=== PATIENT | female | born 1975 | race Caucasian/White ===

== ENCOUNTER 2017-01-07 22:46 | Inpatient (IN) | payer OTHER ==
[~2017-01-07] VITALS: Ht 175.3 cm; Wt 75.0 kg
--- OUTSIDE RECORDS SUMMARY | 2017-01-07 22:51 | XMS REPORT ---
Author Mira Sierra Organization [employer] Address Unknown Phone Unavailable Care Team Providers Care Communications Director Name Role Phone Mira Martin CP Unavailable Allergies, Adverse Reactions, Alerts Substance Reaction Event Type iodine cant breath Non Drug Allergy Problems Problem Type Condition ICD-9 Code Onset Dates Condition Status Problem Migraine, unspecified, with intractable migraine, with status migrainosus 346.93 Active Problem Contraception maintenance V25.40 Active Problem Anxiety disorder NOS 300.00 Active Assessment Pain, knee 719.46 Active Medications No Known Medications Procedures Procedure Coding System Code Date Office/Outpatient Visit-Est CPT-4 45656 Aug 03, 2013 Vital Signs Date/Time: Aug 03, 2013 Temperature 98.0 F Blood Pressure Diastolic 60 mm Hg Blood Pressure Systolic 110 mm Hg Height 68 inches Weight 146.0 lbs Results No Known Results Summary Purpose [employer] Submission
--- OUTSIDE RECORDS SUMMARY | 2017-01-07 22:51 | XMS REPORT ---
Author Mira Sierra Organization [employer] Address Unknown Phone Unavailable Care Team Providers Care Maintenance Trainer Name Role Phone Mira Martin CP Unavailable Allergies, Adverse Reactions, Alerts Substance Reaction Event Type iodine cant breath Drug Allergy Problems Problem Type Condition ICD-9 Code Onset Dates Condition Status Problem Contraception maintenance V25.40 Active Problem Anxiety disorder NOS 300.00 Active Problem Migraine, unspecified, with intractable migraine, with status migrainosus 346.93 Active Assessment Right shoulder pain 719.41 Active Medications Medication Code System Code Instructions Start Date End Date Status Dosage Acetaminophen-Oxycodone Hydrochloride NDC 689 325 mg-5 mg orally every 6 hours prn pain Oct 25, 2014 Active 1 tab(s) Procedures Procedure Coding System Code Date Slings CPT-4 A4565 Oct 25, 2014 Office/Outpatient Visit-Est CPT-4 94477 Oct 25, 2014 X-Ray Exam of Shoulder CPT-4 58076 Oct 25, 2014 Vital Signs Date/Time: Oct 25, 2014 Temperature 98.0 F Blood Pressure Diastolic 86 mm Hg Blood Pressure Systolic 120 mm Hg BMI 21.68 Index Height 68 in Weight 142.6 lbs Results No Known Results Summary Purpose [employer] Submission
--- OUTSIDE RECORDS SUMMARY | 2017-01-07 22:51 | XMS REPORT | Referral Summary ---
Author Organization Unknown Address Unknown Phone Unavailable Care Team Providers Care Commercial Insurance Underwriter Name Role Phone Alex Martin Primary Care Physician [phone] Encounter [facility] [id number] Date(s): 11/10/14 - 11/10/[address] [address] Discharge Disposition: Home or Self Care Attending Physician: Miguelina Lucio MD Vital Signs No data available for this section Problem List No Known Problems Allergies, Adverse Reactions, Alerts Substance Reaction Severity Status iodine Pharyngeal edema Severe Active Medications naproxen 375 mg oral tablet 1 tabs, Oral, BID, # 60 tabs, 0 Refill(s), Pharmacy: [facility] [id number] , 1 tabs Oral BID Start Date: 11/02/14 Status: Ordered Results No data available for this section Immunizations No data available for this section Procedures Procedure Date Related Diagnosis Body Site Left knee Left shoulder [place] tooth Social History Social History Type Response Smoking Status Former smoker; Type: Cigarettes Assessment and Plan No data available for this section
--- OUTSIDE RECORDS SUMMARY | 2017-01-07 22:51 | XMS REPORT | Referral Summary ---
Author Author [facility] Organization [facility] Address Unknown Phone Unavailable Care Team Providers Care Manager Public Name Role Phone Alex Martin Primary Care Physician [phone] Encounter Date(s): 07/10/16 - 07/10/16 [facility] [address] [place] [address] [facility] Discharge Diagnosis: Vomiting Discharge Diagnosis: Gastroenteritis Discharge Diagnosis: Left bundle branch block Discharge Diagnosis: Chest pain Discharge Disposition: 01-Home or Self Care Attending Physician: Provider, Immediate Care Attending Physician: Vish Nur PA-C Admitting Physician: Provider, Immediate Care Vital Signs Most recent to 1 oldest [Reference Range]: Temperature Oral 36.6 degC [35.8-37.3 degC] (07/10/16 1:57 PM) Peripheral Pulse 110 bpm Rate [60-100 bpm] *HI* (07/10/16 1:57 PM) Blood Pressure 107/82 mmHg [90-140/60-90 mmHg] (07/10/16 1:57 PM) SpO2 99 % (07/10/16 1:57 PM) Problem List Condition Effective Dates Status Health Status Informant Acute Active pain(Confirmed) At risk for Active infection(Confirmed) 1 At risk of pressure Active sore(Confirmed) Beta-hemolytic Active Streptococcus, group A(Confirmed)2 1Problem added automatically by system based on initiation of At Risk for Infection in Nutrition Plan of Care 2Strep Grp A in Throat from NOT FOUND collected 10/12/15 12:11:00 [employer] Allergies, Adverse Reactions, Alerts Substance Reaction Severity Status iodine Pharyngeal edema Severe Active Medications Excedrin Migraine tabs, Oral, q6hr, 0 Refill(s) Start Date: 04/22/16 Status: Ordered Levsin SL 0.125 mg sublingual tablet 0.125 mg 1 tabs, SubLingual, q4hr, # 15 tabs, 0 Refill(s), Pharmacy: [id number], 1 tabs SubLingual q4hr Start Date: 07/10/16 Status: Ordered ProAir HFA 90 mcg/inh inhalation aerosol 2 puffs, Inhalation, QID, as needed for wheezing, # 8.5 g, 0 Refill(s), Pharmacy : [facility] [id number] Start Date: 04/22/16 Status: Ordered Zofran ODT 4 mg oral tablet, disintegrating 4 mg 1 tabs, Oral, q4hr, as needed for nausea/vomiting, # 10 tabs, 0 Refill(s), Pharmacy: [facility] [id number], 1 tabs Oral q4hr,PRN:as needed for nausea/ vomiting Start Date: 07/10/16 Stop Date: 07/14/16 Status: Ordered Results Hematology Most recent to 1 oldest [Reference Range]: WBC [5.0-10.0 4.7 10*3/uL 10*3/uL] *LOW* (07/10/16 3:26 PM) RBC [3.70-5.20] 5.30 *HI* (07/10/16 3:26 PM) Hgb [12.0-16.0 15.2 gm/dL gm/dL] (07/10/16 3:26 PM) Hct [37.0-47.0 %] 45.8 % (07/10/16 3:26 PM) MCV [80.0-96.0 fL] 86.4 fL (07/10/16 3:26 PM) MCH [26.0-34.0 pg] 28.7 pg (07/10/16 3:26 PM) MCHC [32.0-36.0 33.2 gm/dL gm/dL] (07/10/16 3:26 PM) RDW [0.0-14.5 %] 14.4 % (07/10/16 3:26 PM) Platelet [150-400 211 10*3/uL 10*3/uL] (07/10/16 3:26 PM) MPV [8.8-14.8 fL] 10.7 fL (07/10/16 3:26 PM) Neutrophils [50-70 60 % %] (07/10/16 3:26 PM) Lymphocytes [20-40 30 % %] (07/10/16 3:26 PM) Monocytes [4-8 %] 9 % *HI* (07/10/16 3:26 PM) Eosinophils [0-6 %] 0 % (07/10/16 3:26 PM) Basophils [0-2 %] 1 % (07/10/16 3:26 PM) Neutro Absolute 2.81 10*3 [2.50-7.00 10*3] (07/10/16 3:26 PM) Lymph Absolute 1.39 10*3 [1.00-4.00 10*3] (07/10/16 3:26 PM) [place] Absolute 0.41 10*3 [0.20-0.80 10*3] (07/10/16 3:26 PM) Eos Absolute 0.02 10*3 [0.00-0.60 10*3] (07/10/16 3:26 PM) Baso Absolute 0.04 [0.00-0.30] (07/10/16 3:26 PM) Chemistry Most recent to 1 oldest [Reference Range]: Albumin Lvl [3.5-5.0 4.9 gm/dL gm/dL] (07/10/16 3:26 PM) Total Protein 7.7 gm/dL [6.1-7.7 gm/dL] (07/10/16 3:26 PM) ALT [0-55 U/L] 14 U/L (07/10/16 3:26 PM) AST [5-34 U/L] 16 U/L (07/10/16 3:26 PM) Alk Phos [40-150 80 U/L U/L] (07/10/16 3:26 PM) Bili Total [0.2-1.2 0.7 mg/dL mg/dL] (07/10/16 3:26 PM) Bili Direct [0.0-0.5 0.2 mg/dL mg/dL] (07/10/16 3:26 PM) Bili Indirect 0.5 mg/dL [0.0-1.0 mg/dL] (07/10/16 3:26 PM) Troponin [0.00-0.01 0.01 ng/mL ng/mL] (07/10/16 3:26 PM) Lipase Lvl [8-78 10 U/L U/L] (07/10/16 3:26 PM) Sodium Venous 140 mmol/L [136-145 mmol/L] (07/10/16 3:26 PM) Potassium Venous 3.5 mmol/L 1 [3.5-5.1 mmol/L] (07/10/16 3:26 PM) Calcium Ionized 1.12 mmol/L Venous [1.10-1.30 (07/10/16 3:26 PM) mmol/L] Total CO2 Venous 27 mmol/L [24-29 mmol/L] (07/10/16 3:26 PM) Glucose Venous 101 mg/dL [70-100 mg/dL] *HI* (07/10/16 3:26 PM) BUN Venous [8-26] 21 (07/10/16 3:26 PM) Creatinine Venous 1.1 mg/dL [0.6-1.2 mg/dL] (07/10/16 3:26 PM) Venous CL [98-109 100 mmol/L mmol/L] (07/10/16 3:26 PM) 1Result Comment: This test was performed on a whole blood specimen. The presence or absence of hemolysis cannot be assessed. Hemolysis can falsely elevate potassium levels. Normals are for venous specimens only. Immunizations No data available for this section Procedures Procedure Date Related Diagnosis Body Site Collection of venous blood by venipuncture 07/10/16 Left knee Left shoulder Tonsillectomy [place] tooth Social History Social History Type Response Smoking Status Former smoker; Type: Cigarettes Assessment and Plan Extracted from: Title: Work Note Author: Luz Molina RN Date: 07/10/16 To Whom It May Concern: This patient was seen and treated in Immediate Care on 07/10/16. Please excuse from work 07/09 and 07/10. May return to work on 07/11 if no vomiting x24 hours. Thanks Extracted from: Title: Office Visit Note Author: Vish Nur PA-C Date: 07/10/16 Assessment/Plan Chest pain I reviewed my findings and impressions with the patient at length. See above for the multiple discussions with the patient. She is given very strict return precautions verbally and if she develops any symptoms of a chest discomfort she is instructed to go to the ER immediately. She is given the instructions for her cardiology appointment on the sixth. Prescriptions for Zofran and Levsin are sent to her pharmacy. Patient is in improved condition. Gastroenteritis Ordered: hyoscyamine, 0.125 mg 1 tabs, SubLingual, q4hr, # 15 tabs, 0 Refill(s), Pharmacy: [facility] [id number], 1 tabs SubLingual q4hr ondansetron, 4 mg 1 tabs, Oral, q4hr, as needed for nausea/vomiting, # 10 tabs , 0 Refill(s), Pharmacy: [facility] [id number], 1 tabs Oral q4hr,PRN:as needed for nausea/vomiting Office Visit Level 4 Est 06066 Left bundle branch block Ordered: Office Visit Level 4 Est 25688 Vomiting Ordered: hyoscyamine, 0.125 mg 1 tabs, SubLingual, q4hr, # 15 tabs, 0 Refill(s), Pharmacy: [facility] [address], 1 tabs SubLingual q4hr ondansetron, 4 mg 1 tabs, Oral, q4hr, as needed for nausea/vomiting, # 10 tabs , 0 Refill(s), Pharmacy: [facility] [id number], 1 tabs Oral q4hr,PRN:as needed for nausea/vomiting Hydrate Iv Infusion Add-On 62204 Hydration Iv Infusion Init 18650 Office Visit Level 4 Est 72613
--- OUTSIDE RECORDS SUMMARY | 2017-01-07 22:51 | XMS REPORT ---
Author Mira Sierra Organization [employer] Address Unknown Phone Unavailable Care Team Providers Care Housing Court Judge Name Role Phone Mira Martin CP Unavailable Allergies No Known Allergies Problems Problem Type Condition ICD-9 Code Onset Dates Condition Status Problem Contraception maintenance V25.40 Active Problem Anxiety disorder NOS 300.00 Active Problem Migraine, unspecified, with intractable migraine, with status migrainosus 346.93 Active Medications No Known Medications Results No Known Results Summary Purpose [employer]ClinicalWorks Submission
--- OUTSIDE RECORDS SUMMARY | 2017-01-07 22:52 | XMS REPORT ---
Author Mira Sierra Organization [employer] Address Unknown Phone Unavailable Care Team Providers Care Leak Gang Supervisor Name Role Phone Mira Martin CP Unavailable Allergies, Adverse Reactions, Alerts Substance Reaction Event Type iodine cant breath Drug Allergy Problems Problem Type Condition ICD-9 Code Onset Dates Condition Status Problem Contraception maintenance V25.40 Active Problem Anxiety disorder NOS 300.00 Active Problem Migraine, unspecified, with intractable migraine, with status migrainosus 346.93 Active Assessment ROUTINE MEDICAL EXAM V70.0 Active Assessment Right shoulder pain 719.41 Active Medications Medication Code System Code Instructions Start Date End Date Status Dosage Acetaminophen-Oxycodone Hydrochloride NDC 689 325 mg-5 mg orally every 6 hours prn pain Oct 25, 2014 1 tab(s) Acetaminophen-Oxycodone Hydrochloride NDC 689 325 mg-5 mg orally every 6 hours prn pain 1 tab(s) Procedures Procedure Coding System Code Date Lipid Panel CPT-4 43967 Nov 02, 2014 Comprehensive Metabolic Panel CPT-4 63639 Nov 02, 2014 Urinalysis, Auto, w/o Scope CPT-4 24041 Nov 02, 2014 Prev Visit, Est - Age 40-64 CPT-4 40148 Nov 02, 2014 Automated Hemogram-CBC w/Diff CPT-4 51368 Nov 02, 2014 Vital Signs Date/Time: Nov 02, 2014 Temperature 97.8 F Blood Pressure Diastolic 80 mm Hg Blood Pressure Systolic 110 mm Hg BMI 21.59 Index Height 68 in Weight 142 lbs Results No Known Results Summary Purpose eClinicalWorks Submission
--- OUTSIDE RECORDS SUMMARY | 2017-01-07 22:52 | XMS REPORT ---
Author Mira Sierra Organization [employer] Address Unknown Phone Unavailable Care Team Providers Care Sales Architect Name Role Phone Mira Martin CP Unavailable [...] Coding System Code Date Office/Outpatient Visit-Est CPT-4 76077 Jul 16, 2013 GARMENT BELT SLEEVE OTH ELASTIC EA CPT-4 A4466 Jul 16, 2013 X-Ray Exam of Knee, 3 CPT-4 91604 Jul 16, 2013 Vital Signs Date/Time: Jul 16, 2013 Temperature 97.8 F Blood Pressure Diastolic 80 mm Hg Blood Pressure Systolic 120 mm Hg Height 68 inches Weight 143.9 lbs Results No Known Results Summary Purpose eClinicalWorks Submission
--- OUTSIDE RECORDS SUMMARY | 2017-01-07 22:52 | XMS REPORT | Referral Summary ---
Author Author [facility] Organization [facility] Address Unknown Phone Unavailable Care Team Providers Care Health Policy Manager Name Role Phone Alex Martin Primary Care Physician [phone] Encounter [facility] Date(s): 03/07/16 - 03/07/16 [facility] [address] [place] [address] [facility] Discharge Disposition: 01-Home or Self Care Attending Physician: Shahnaz Little Attending Physician: Provider, Immediate Care Attending Physician: Rebekah Davila MD Admitting Physician: Provider, Immediate Care Vital Signs Most recent to 1 oldest [Reference Range]: Temperature Oral 36.8 degC [35.8-37.3 degC] (03/07/16 5:27 PM) Peripheral Pulse 89 bpm Rate [60-100 bpm] (03/07/16 5:27 PM) Blood Pressure 136/89 mmHg [90-140/60-90 mmHg] (03/07/16 5:27 PM) SpO2 98 % (03/07/16 5:27 PM) Problem List Condition Effective Dates Status Health Status Informant Acute Active pain(Confirmed) At risk for Active infection(Confirmed) 1 At risk of pressure Active sore(Confirmed) Beta-hemolytic Active Streptococcus, group A(Confirmed)2 1Problem added automatically by system based on initiation of At Risk for Infection in Nutrition Plan of Care 2Strep Grp A in Throat from NOT FOUND collected 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 Allergies, Adverse Reactions, Alerts Substance Reaction Severity Status iodine Pharyngeal edema Severe Active Medications acetaminophen 650 mg, Oral, q6hr, as needed for fever, 0 Refill(s) Start Date: 08/18/15 Status: Ordered ibuprofen 600 mg, Oral, q8hr, as needed for fever, 0 Refill(s) Start Date: 08/18/15 Status: Ordered predniSONE 20 mg oral tablet See Instructions, 2 tabs Oral daily for 3 days then 1 tab daily for 3 days with food, # 9 tabs, 0 Refill(s), Pharmacy: [facility] [id number], 2 tabs Oral daily for 3 days; then 1 tab daily for 3 days; with food Start Date: 03/07/16 Stop Date: 03/13/16 Status: Ordered Results No data available for this section Immunizations No data available for this section Procedures Procedure Date Related Diagnosis Body Site Left knee Left shoulder Tonsillectomy [place] tooth Social History Social History Type Response Smoking Status Former smoker; Type: Cigarettes Assessment and Plan Extracted from: Title: Office Visit Note Author: Rebekah Davila MD Date: 03/07/16 Assessment/Plan Acute viral syndrome rx of prednisone for 6 days and recommend to follow up with her PCP in a week if Sx not resolving. Orders: predniSONE, See Instructions, 2 tabs Oral daily for 3 days then 1 tab daily for 3 days with food, # 9 tabs, 0 Refill(s), Pharmacy: [facility] [id number], 2 tabs Oral daily for 3 days; then 1 tab daily for 3 days; with food
--- OUTSIDE RECORDS SUMMARY | 2017-01-07 22:52 | XMS REPORT | Referral Summary ---
Author Author [facility] Organization [facility] Address Unknown Phone Unavailable Care Team Providers Care Chief General [facility] Name Role Phone Alex Martin Primary Care Physician [phone] Encounter [facility] Date(s): 10/12/15 - 10/12/15 [facility] [address] [place], [place] [address] Discharge Diagnosis: Pneumonia Discharge Diagnosis: Strep pharyngitis Discharge Disposition: 01-Home or Self Care Attending Physician: Remington Watt MD Admitting Physician: Remington Watt MD Vital Signs Most recent to 1 oldest [Reference Range]: Temperature Oral 36.0 degC [35.8-37.3 degC] (10/12/15 11:55 AM) Peripheral Pulse 96 bpm Rate [60-100 bpm] (10/12/15 12:59 PM) Respiratory Rate 22 br/min [14-20 br/min] *HI* (10/12/15 12:59 PM) Blood Pressure 120/85 mmHg [90-140/60-90 mmHg] (10/12/15 12:59 PM) SpO2 100 % (10/12/15 12:59 PM) Problem List Condition Effective Dates Status Health Status Informant Acute Active pain(Confirmed) At risk for Active infection(Confirmed) 1 At risk of pressure Active sore(Confirmed) Beta-hemolytic Active Streptococcus, group A(Confirmed)2 1Problem added automatically by system based on initiation of At Risk for Infection in Nutrition Plan of Care 2Strep Grp A in Throat from NOT FOUND collected 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 Allergies, Adverse Reactions, Alerts Substance Reaction Severity Status iodine Pharyngeal edema Severe Active Medications acetaminophen 650 mg, Oral, q6hr, as needed for fever, 0 Refill(s) Start Date: 08/18/15 Status: Ordered albuterol CFC free 90 mcg/inh inhalation aerosol 2 puffs, Inhalation, Once, as needed for wheezing, # 8 g, 0 Refill(s) Start Date: 10/12/15 Status: Ordered amoxicillin 500 mg oral tablet 500 mg 1 tabs, Oral, BID, X 10 days, # 20 tabs, 0 Refill(s) Start Date: 10/12/15 Stop Date: 10/22/15 Status: Ordered Azithromycin 5 Day Dose Pack 250 mg oral tablet 1 packets, Oral, Once, as directed on package labeling, # 6 tabs, 0 Refill(s) Start Date: 10/12/15 Status: Ordered Fioricet oral tablet 2 tabs, Oral, q6hr, Headache, # 28 tabs, 0 Refill(s), Pharmacy: [facility] [id number] Start Date: 08/22/15 Status: Ordered ibuprofen 600 mg, Oral, q8hr, as needed for fever, 0 Refill(s) Start Date: 08/18/15 Status: Ordered Results Microbiology Reports TEST: Rapid Strep Group A STATUS: Auth (Verified) BODY SITE: SOURCE: Throat COLLECTED DATE/TIME: 10/12/15 12:22 PM Rapid Strep Group A Positive Immunizations No data available for this section Procedures Procedure Date Related Diagnosis Body Site Left knee Left shoulder Tonsillectomy [place] tooth Social History Social History Type Response Smoking Status Former smoker; Type: Cigarettes Assessment and Plan No data available for this section
--- OUTSIDE RECORDS SUMMARY | 2017-01-07 22:52 | XMS REPORT | Referral Summary ---
Author Author [facility] Organization [facility] Address Unknown Phone Unavailable Care Team Providers Care Senior Climate Advisor Name Role Phone Alex Martin Primary Care Physician [phone] Encounter Date(s): 03/04/15 - 03/04/15 [facility] [address] [place] [address] [facility] Discharge Disposition: 01-Home or Self Care Attending Physician: Natanael Brown MD Attending Physician: Provider, Immediate Care Admitting Physician: Provider, Immediate Care Vital Signs Most recent to 1 oldest [Reference Range]: Peripheral Pulse 98 bpm Rate [60-100 bpm] (03/04/15 5:56 PM) Respiratory Rate 16 br/min [14-20 br/min] (03/04/15 5:56 PM) Blood Pressure 138/96 mmHg [90-140/60-90 mmHg] (03/04/15 5:56 PM) SpO2 100 % (03/04/15 5:56 PM) Problem List Condition Effective Dates Status Health Status Informant Acute Active pain(Confirmed) At risk for Active infection(Confirmed) 1 At risk of pressure Active sore(Confirmed) No Chronic Problems Active 1Problem added automatically by system based on initiation of At Risk for Infection in Nutrition Plan of Care Allergies, Adverse Reactions, Alerts Substance Reaction Severity Status iodine Pharyngeal edema Severe Active Medications acetaminophen 650 mg, Oral, q6hr, as needed for fever, 0 Refill(s) Start Date: 08/18/15 Status: Ordered Fioricet oral tablet 2 tabs, Oral, q6hr, Headache, # 28 tabs, 0 Refill(s), Pharmacy: [facility] [address] Start Date: 08/22/15 Status: Ordered ibuprofen 600 mg, Oral, q8hr, as needed for fever, 0 Refill(s) Start Date: 08/18/15 Status: Ordered Results No data available for this section Immunizations No data available for this section Procedures Procedure Date Related Diagnosis Body Site Left knee Left shoulder Tonsillectomy [place] tooth Social History Social History Type Response Smoking Status Former smoker; Type: Cigarettes Assessment and Plan Extracted from: Title: [facility] note Author: Natanael Brown MD Date: 03/04/15 Assessment/Plan Injury of knee, left X-ray showed a suprapatellar joint effusion in this is consistent with exam. Her pain was too high today to do a complete and thorough exam of her left knee but based off of her symptoms in the history of her injury she likely warrants an MRI of the left knee joint for evaluation of ligamentous or meniscus injury. She would like to follow up with her orthopedic doctor Dr. Cardenas'arnaldo in his office and we'll try and call them on Saturday to see if they have room for her. In the meantime we will treat symptomatically with Wedron 5/325mg by mouth every 6 hr when necessary for severe pain number 10. Ordered: Office Visit Level 3 Est 41050 XR Knee Complete Left
--- OUTSIDE RECORDS SUMMARY | 2017-01-07 22:52 | XMS REPORT | Referral Summary ---
Author Author [facility] Organization [facility] Address Unknown Phone Unavailable Care Team Providers Care Plastic Block Boiler Reliner Name Role Phone Alex Martin Primary Care Physician [phone] Encounter [facility] [id number] Date(s): 07/08/15 - 09/03/[address] [facility] [address] [place] [address] LZ Final: Encounter for other orthopedic aftercare Final: Ankylosis, left knee Discharge Disposition: 01-Home or Self Care Attending Physician: Geovani Cardenas MD Vital Signs No data available for this section Problem List Condition Effective Dates Status Health [...] Headache, # 28 tabs, 0 Refill(s), Pharmacy: [email or web address] [id number] Start Date: 08/22/15 Status: Ordered ibuprofen 600 mg, Oral, q8hr, as needed for fever, 0 Refill(s) Start Date: 08/18/15 Status: Ordered Results No data available for this section Immunizations No data available for this section Procedures Procedure Date Related Diagnosis Body Site Left knee Left shoulder Tonsillectomy [place] tooth Social History Social History Type Response Smoking Status Former smoker; Type: Cigarettes Assessment and Plan No data available for this section
--- OUTSIDE RECORDS SUMMARY | 2017-01-07 22:52 | XMS REPORT | Referral Summary ---
Author Author [facility] Organization [facility] Address Unknown Phone Unavailable Care Team Providers Care Hr Representative Name Role Phone Alex Martin Primary Care Physician [phone] Encounter [facility] [id number] Date(s): 02/04/15 - 04/22/15 [facility] [address] [place] [address] Final: CARE INVOLVING OTHER PHYSICAL THERAPY Final: CALCIFYING TENDINITIS OF SHOULDER Discharge Disposition: 01-Home or Self Care Attending Physician: Geovani Cardenas MD Admitting Physician: Geovani Cardenas MD Vital Signs No data available for this section Problem List No Known Problems Allergies, Adverse Reactions, Alerts Substance Reaction Severity Status iodine Pharyngeal edema Severe Active Medications No data available for this section Results No data available for this section Immunizations No data available for this section Procedures Procedure Date Related Diagnosis Body Site Left knee Left shoulder [place] tooth Social History Social History Type Response Smoking Status Former smoker; Type: Cigarettes Assessment and Plan No data available for this section
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
--- OUTSIDE RECORDS SUMMARY | 2017-01-07 22:52 | XMS REPORT | Referral Summary ---
Author Organization Unknown Address Unknown Phone Unavailable Care Team Providers Care Financial Reporting Analyst Name Role Phone Alex Martin Primary Care Physician [phone] Encounter [facility] Date(s): 11/02/14 - 11/02/14 [facility] [address] [place] [address] [facility] Discharge Diagnosis: Knee pain Discharge Disposition: Home or Self Care Attending Physician: Mira Martin MD Admitting Physician: Mira Martin MD Vital Signs Most recent to 1 oldest [Reference Range]: Temperature Oral 37.1 degC [35.8-37.3 degC] (11/02/14 6:58 PM) Peripheral Pulse 94 bpm Rate [60-100 bpm] (11/02/14 6:58 PM) Blood Pressure 139/88 mmHg [90-140/60-90 mmHg] (11/02/14 6:58 PM) Most recent to 1 oldest [Reference Range]: SpO2 97 % (11/02/14 6:58 PM) Problem List No Known Problems Allergies, Adverse Reactions, Alerts Substance Reaction Severity Status iodine Pharyngeal edema Severe Active Medications HYDROcodone-acetaminophen 5 mg-325 mg oral tablet 1 tabs, Oral, q4hr, as needed for pain, X 3 days, # 18 tabs, 0 Refill(s) Start Date: 11/02/14 Stop Date: 11/05/14 Status: Ordered naproxen 375 mg oral tablet 1 tabs, Oral, BID, # 60 tabs, 0 Refill(s), Pharmacy: [facility] [id number] , 1 tabs Oral BID Start Date: 11/02/14 Status: Ordered Results No data available for this section Immunizations No data available for this section Procedures Procedure Date Related Diagnosis Body Site Left knee Left shoulder [place] tooth Social History Social History Type Response Smoking Status Former smoker; Type: Cigarettes Assessment and Plan Extracted from: Title: Office Visit Note Author: Trey Foreman Desmond DO Date: 11/02/14 Assessment/Plan Knee pain I've discussed with the patient that she needs further evaluation to determine why her knee is giving away and why she has pain. She is to contact her primary care physician to schedule further evaluation and possibly MRI. She was placed in a neoprene knee sleeve as a supportive device. She was placed on naproxen 375 mg twice a day for anti-inflammatory. She also was given [place] 5 for pain. The patient is to follow-up with PCP as soon as possible for further treatment and guidance. Ordered: HYDROcodone-acetaminophen, 1 tabs, Oral, q4hr, as needed for pain, X 3 days, # 18 tabs, 0 Refill(s) naproxen, 1 tabs, Oral, BID, # 60 tabs, 0 Refill(s), Pharmacy: [id number], 1 tabs Oral BID Garment, belt, sleeve or other covering, elastic or similar stretchable [id number]
--- OUTSIDE RECORDS SUMMARY | 2017-01-07 22:52 | XMS REPORT ---
Author Augusto Braxton Organization [employer] Address Unknown Phone Unavailable Care Team Providers Care Passenger Train Braker Name Role Phone Augusto Santos CP Unavailable Allergies, Adverse Reactions, Alerts Substance Reaction Event Type iodine cant breath Drug Allergy Problems Problem Type Condition ICD-9 Code Onset Dates Condition Status Problem Contraception maintenance V25.40 Active Problem Anxiety disorder NOS 300.00 Active Problem Migraine, unspecified, with intractable migraine, with status migrainosus 346.93 Active Assessment Lymphadenopathy, cervical 785.6 Active Medications Medication Code System Code Instructions Start Date End Date Status Dosage doxycycline NDC 72772 100 mg orally 2 times a day December 17, 2014 1 cap(s) Acetaminophen-Oxycodone Hydrochloride NDC 689 325 mg-5 mg orally every 6 hours prn pain Oct 25, 2014 1 tab(s) Procedures Procedure Coding System Code Date Office/Outpatient Visit-Est CPT-4 62929 December 17, 2014 Vital Signs Date/Time: December 17, 2014 Temperature 99.3 F Blood Pressure Diastolic 70 mm Hg Blood Pressure Systolic 112 mm Hg BMI 21.30 Index Height 68 in Weight 140.1 lbs Results No Known Results Summary Purpose [employer] Submission
--- OUTSIDE RECORDS SUMMARY | 2017-01-07 22:52 | XMS REPORT | Referral Summary ---
Author Author [facility] Organization [facility] Address Unknown Phone Unavailable Care Team Providers Care Production Department Supervisor Name Role Phone Alex Martin Primary Care Physician [phone] Encounter [facility] [id number] Date(s): 08/16/15 - 08/16/15 [facility] [address] [place] [address] [facility] Discharge Diagnosis: Strep throat Discharge Diagnosis: Sore throat Discharge Disposition: 01-Home or Self Care Attending Physician: Villa Castillo PA-C Attending Physician: Provider, Immediate Care Admitting Physician: Provider, Immediate Care Vital Signs Most recent to 1 oldest [Reference Range]: Temperature Oral 38.9 degC [35.8-37.3 degC] *HI* (08/16/15 7:10 PM) Peripheral Pulse 116 bpm Rate [60-100 bpm] *HI* (08/16/15 7:10 PM) Blood Pressure 140/85 mmHg [90-140/60-90 mmHg] (08/16/15 7:10 PM) SpO2 96 % (08/16/15 7:10 PM) Problem List No Known Problems Allergies, Adverse Reactions, Alerts Substance Reaction Severity Status iodine Pharyngeal edema Severe Active Medications No Known Medications Results No data available for this section Immunizations No data available for this section Procedures Procedure Date Related Diagnosis Body Site Left knee Left shoulder [place] tooth Social History Social History Type Response Smoking Status Former smoker; Type: Cigarettes Assessment and Plan Extracted from: Title: Office Visit Note Author: Villa Castillo PA-C Date: 08/16/15 Assessment/Plan 1.Strep throat Rapid strep positive. Pt given a z-tamy d/t recent diagnosis of mono. Diagnosis and treatment discussed. Patient advised to follow up with PCP in 2-3 days. If symptoms worsen at any time, patient will go to the nearest ER for further evaluation. Patient stable upon discharge, alert and orientated with no apparent distress, and indicated understanding of discharge instructions. Ordered: Office Visit Level 3 Est 70723 Extracted from: Title: Clinical Document Author: Villa Castillo PA-C Date: 08/16/15 To Whom It May Concern: This patient is currently under my medical care and was seen in the office on . May return to work 08/19/15. Limitations/Restrictions none
--- OUTSIDE RECORDS SUMMARY | 2017-01-07 22:52 | XMS REPORT | Referral Summary ---
Author Author [facility] Organization [facility] Address Unknown Phone Unavailable Care Team Providers Care Site Medical Director Name Role Phone Alex Martin Primary Care Physician [phone] Encounter Date(s): 04/22/16 - 04/22/16 [facility] [address] [place] [address] [facility] Discharge Diagnosis: Cough Discharge Diagnosis: Lingular pneumonia Discharge Disposition: 01-Home or Self Care Attending Physician: Kanchan [place] APRN Attending Physician: Villa Castillo PA-C Attending Physician: Provider, Immediate Care Admitting Physician: Provider, Immediate Care Vital Signs Most recent to 1 oldest [Reference Range]: Temperature Oral 36.8 degC [35.8-37.3 degC] (04/22/16 11:47 AM) Peripheral Pulse 96 bpm Rate [60-100 bpm] (04/22/16 11:47 AM) Blood Pressure 135/83 mmHg [90-140/60-90 mmHg] (04/22/16 11:47 AM) SpO2 98 % (04/22/16 11:47 AM) Problem List Condition Effective Dates Status Health Status Informant Acute Active pain(Confirmed) At risk for Active infection(Confirmed) 1 At risk of pressure Active sore(Confirmed) Beta-hemolytic Active Streptococcus, group A(Confirmed)2 1Problem added automatically by system based on initiation of At Risk for Infection in Nutrition Plan of Care 2Strep Grp A in Throat from NOT FOUND collected 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 Allergies, Adverse Reactions, Alerts Substance Reaction Severity Status iodine Pharyngeal edema Severe Active Medications Excedrin Migraine tabs, Oral, q6hr, 0 Refill(s) Start Date: 04/22/16 Status: Ordered Levaquin 750 mg oral tablet 750 mg 1 tabs, Oral, q24hr, X 10 days, # 10 tabs, 0 Refill(s), Pharmacy: [facility] [id number], 1 tabs Oral q24hr,x10 days Start Date: 04/22/16 Stop Date: 05/02/16 Status: Ordered ProAir HFA 90 mcg/inh inhalation aerosol 2 puffs, Inhalation, QID, as needed for wheezing, # 8.5 g, 0 Refill(s), Pharmacy : [facility] [id number] Start Date: 04/22/16 Status: Ordered Results No data available for this section Immunizations No data available for this section Procedures Procedure Date Related Diagnosis Body Site Left knee Left shoulder Tonsillectomy [place] tooth Social History Social History Type Response Smoking Status Former smoker; Type: Cigarettes Assessment and Plan Extracted from: Title: Office Visit Note Author: Villa Castillo PA-C Date: 04/22/16 Assessment/Plan 1.Lingular pneumonia CXR reveals left lingular infiltrate. Pt given Rocephin IM x 1 gram, rx for Levaquin and albuterol HFA. Diagnosis and treatment discussed. Patient advised to follow up with PCP in1-2 days. If symptoms worsen at any time, patient will go to the nearest ER for further evaluation. Patient stable upon discharge, alert and orientated with no apparent distress, and indicated understanding of discharge instructions. Ordered: Office Visit Level 3 Est 28817 Orders: albuterol, 2 puffs, Inhalation, QID, as needed for wheezing, # 8.5 g, 0 Refill(s), Pharmacy: [facility] [id number] levofloxacin, 750 mg 1 tabs, Oral, q24hr, X 10 days, # 10 tabs, 0 Refill(s), Pharmacy: [id number], 1 tabs Oral q24hr,x10 days
--- OUTSIDE RECORDS SUMMARY | 2017-01-07 22:52 | XMS REPORT | Referral Summary ---
Author Author [facility] Organization [facility] Address Unknown Phone Unavailable Care Team Providers Care Environmental Marketing Representative Name Role Phone Alex Martin Primary Care Physician [phone] Encounter [facility] Date(s): 08/18/15 - 08/22/15 [facility] [address] [place], [place] [address] Discharge Disposition: 01-Home or Self Care Attending Physician: Nicola Hussein MD Admitting Physician: Nicola Hussein MD Vital Signs Most recent to 1 oldest [Reference Range]: Temperature Oral 37.0 degC [35.8-37.3 degC] (08/22/15 11:00 AM) Peripheral Pulse 71 bpm Rate [60-100 bpm] (08/22/15 4:21 AM) Heart Rate Monitored 86 bpm [60-100 bpm] (08/22/15 11:21 AM) Respiratory Rate 16 br/min [14-20 br/min] (08/22/15 11:21 AM) Blood Pressure 102/67 mmHg [90-140/60-90 mmHg] (08/22/15 11:00 AM) Pulse Rate [60-100 80 bpm bpm] (08/21/15 10:15 PM) SpO2 95 % (08/22/15 11:21 AM) Problem List Condition Effective Dates Status Health Status Informant Acute Active pain(Confirmed) At risk for Active infection(Confirmed) 1 At risk of pressure Active sore(Confirmed) No Chronic Problems Active 1Problem added automatically by system based on initiation of At Risk for Infection in Nutrition Plan of Care Allergies, Adverse Reactions, Alerts Substance Reaction Severity Status iodine Pharyngeal edema Severe Active Medications Abreva 10% topical cream 1 cathleen, Topical, 5x/Day, X 7 days, # 2 g, 0 Refill(s), Pharmacy: [facility] [id number] Start Date: 08/22/15 Stop Date: 08/29/15 Status: Ordered acetaminophen 650 mg, Oral, q6hr, as needed for fever, 0 Refill(s) Start Date: 08/18/15 Status: Ordered amoxicillin 500 mg oral capsule 500 mg 1 caps, Oral, TID, X 5 days, # 15 caps, 0 Refill(s), Pharmacy: [facility] [id number], 1 caps Oral TID,x5 days Start Date: 08/22/15 Stop Date: 08/27/15 Status: Ordered Fioricet oral tablet 2 tabs, Oral, q6hr, Headache, # 28 tabs, 0 Refill(s), Pharmacy: [facility] [id number] Start Date: 08/22/15 Status: Ordered ibuprofen 600 mg, Oral, q8hr, as needed for fever, 0 Refill(s) Start Date: 08/18/15 Status: Ordered Results Hematology Most recent to 1 oldest [Reference Range]: WBC [4.8-10.8 6.0 10*3/uL 10*3/uL] (08/22/15 5:25 AM) RBC [4.00-5.20] 4.03 (08/22/15 5:25 AM) Hgb [12.0-16.0 10.9 gm/dL gm/dL] *LOW* (08/22/15 5:25 AM) Hct [37.0-47.0 %] 34.2 % *LOW* (08/22/15 5:25 AM) MCV [82.0-99.0 fL] 84.9 fL (08/22/15 5:25 AM) MCH [27.0-32.0 pg] 27.0 pg (08/22/15 5:25 AM) MCHC [32.0-36.0 31.9 gm/dL gm/dL] *LOW* (08/22/15 5:25 AM) RDW [11.5-14.5 %] 15.1 % *HI* (08/22/15 5:25 AM) Platelet [150-400 236 10*3/uL 10*3/uL] (08/22/15 5:25 AM) MPV [9.4-12.4 fL] 10.4 fL (08/22/15 5:25 AM) Immature 0.3 % Granulocytes (08/22/15 5:25 AM) [0.0-1.0 %] Neutrophils [51-75 55 % %] (08/22/15 5:25 AM) Lymphocytes [20-46 32 % %] (08/22/15 5:25 AM) Monocytes [4-11 %] 10 % (08/22/15 5:25 AM) Eosinophils [0-4 %] 3 % (08/22/15 5:25 AM) Basophils [0-2 %] 1 % (08/22/15 5:25 AM) Neutro Absolute 3.30 10*3 [1.90-7.00 10*3] (08/22/15 5:25 AM) Lymph Absolute 1.91 10*3 [0.80-3.30 10*3] (08/22/15 5:25 AM) [place] Absolute 0.59 10*3 [0.30-1.00 10*3] (08/22/15 5:25 AM) Eos Absolute 0.16 10*3 [0.00-0.50 10*3] (08/22/15 5:25 AM) Baso Absolute 0.04 10*3 [0.00-0.20 10*3] (08/22/15 5:25 AM) Nucleated RBC 0.0 /100 WBC Automated [0 /100 (08/19/15 5:22 AM) WBC] Differential Scanned Slide (08/18/15 3:20 PM) Chemistry Most recent to 1 oldest [Reference Range]: Sodium Lvl [136-144 138 mEq/L mEq/L] (08/22/15 5:25 AM) Potassium Lvl 3.8 mEq/L [3.6-5.1 mEq/L] (08/22/15 5:25 AM) Chloride [99-109 101 mEq/L mEq/L] (08/22/15 5:25 AM) CO2 [22-32 mEq/L] 31 mEq/L (08/22/15 5:25 AM) AGAP [3-20] 6 (08/22/15 5:25 AM) BUN [4-20 mg/dL] 6 mg/dL (08/22/15 5:25 AM) Glucose Lvl [70-100 100 mg/dL mg/dL] (08/22/15 5:25 AM) Creatinine Lvl 0.82 mg/dL [0.44-1.03 mg/dL] (08/22/15 5:25 AM) eGFR [>60] >60 1 (08/22/15 5:25 AM) Calcium Lvl 8.7 mg/dL [8.6-10.0 mg/dL] (08/22/15 5:25 AM) Albumin Lvl [3.5-4.8 2.9 gm/dL gm/dL] *LOW* (08/20/15 5:43 AM) Total Protein 5.9 gm/dL [6.1-7.9 gm/dL] *LOW* (08/20/15 5:43 AM) Globulin [1.9-4.3 3.0 gm/dL gm/dL] (08/20/15 5:43 AM) ALT [14-54 U/L] 55 U/L *HI* (08/20/15 5:43 AM) AST [15-41 U/L] 34 U/L (08/20/15 5:43 AM) Alk Phos [26-104 62 U/L U/L] (08/20/15 5:43 AM) Bili Total [0.2-1.2 0.1 mg/dL 2 mg/dL] *LOW* (08/20/15 5:43 AM) Magnesium Lvl 2.0 mg/dL [1.8-2.5 mg/dL] (08/22/15 5:25 AM) IgE (Immunoglobulin 25 Intl Units/mL E) [0-100 Intl (08/19/15 9:23 AM) Units/mL] Lactic Acid Lvl 0.7 mEq/L [0.5-2.2 mEq/L] (08/19/15 5:22 AM) U Beta hCG Ql Negative [Negative] (08/18/15 3:20 PM) 1Result Comment: Multiply eGFR results by 1.21 for race. 2Result Comment: Naproxen, specifically the metabolite O-desmethylnaproxen, may cause spurious elevation in Total Bilirubin levels. Urinalysis Most recent to 1 oldest [Reference Range]: UA Color Dk Yellow (08/18/15 3:20 PM) UA Appear Clear (08/18/15 3:20 PM) UA pH [5.0-8.0] 7.0 (08/18/15 3:20 PM) UA Leuk Est Negative [Negative] (08/18/15 3:20 PM) UA Nitrite Negative [Negative] (08/18/15 3:20 PM) UA Protein Pos 1+ [Negative] *ABN* (08/18/15 3:20 PM) UA Glucose Negative [Negative] (08/18/15 3:20 PM) UA Ketones Pos 3+ [Negative] *ABN* (08/18/15 3:20 PM) UA Urobilinogen Negative [<1.0] (08/18/15 3:20 PM) UA Bili [Negative] Positive *ABN* (08/18/15 3:20 PM) UA Blood [Negative] Pos 3+ *ABN* (08/18/15 3:20 PM) UA Spec Grav 1.023 [1.003-1.030] (08/18/15 3:20 PM) Type Clean Catch (08/18/15 3:20 PM) UA WBC [0-4] 5-10 *ABN* (08/18/15 3:20 PM) UA RBC [0-2] 10-20 *ABN* (08/18/15 3:20 PM) Epithelial Cells 2-5 (08/18/15 3:20 PM) UA Bacteria Moderate *ABN* (08/18/15 3:20 PM) UA Yeast Present *ABN* (08/18/15 3:20 PM) UA Mucous Present (08/18/15 3:20 PM) Microbiology Reports TEST: Stool Culture w/ Campy & Shigatoxin STATUS: Auth (Verified) BODY SITE: SOURCE: Stool COLLECTED DATE/TIME: 08/18/15 7:03 PM Stool Culture No Salmonella, Shigella or Campylobacter isolated Normal maximino is altered No aerobic gram negative bacilli isolated TEST: Fecal Leucocyte Stain STATUS: Auth (Verified) BODY SITE: SOURCE: Stool COLLECTED DATE/TIME: 08/18/15 7:03 PM Fecal Leucocyte Stain No white blood cells observed TEST: Respiratory Virus Panel - PCR STATUS: Auth (Verified) BODY SITE: SOURCE: Nasopharyngeal Swab COLLECTED DATE/TIME: 08/18/15 6:38 PM Respiratory Virus Panel - PCR Parainfluenza 1 Virus Positive by PCR Rhinovirus Positive by PCR . Specimen tested for the following FDA approved viral targets: Influenza A, Influenza A subtype H1, Influenza A subtype H3, Influenza A 2009 H1N1, Influenza B, Respiratory Syncytial Virus subtype A, Respiratory Syncytial Virus subtype B, Adenovirus B/E, Adenovirus C, Rhinovirus, Parainfluenza virus 1, Parainfluenza virus 2, Parainfluenza virus 3, and Human Metapneumovirus. . The following viral targets were also tested. Although not FDA approved, these targets have been validated by our laboratory for clinical diagnosis: Parainfluenza virus 4, Coronavirus 229E, Coronavirus NL63, Coronavirus HKU1, and Coronavirus OC43. ORGANISM:Parainfluenza Virus Type 1 ORGANISM:Rhinovirus TEST: Blood Culture STATUS: Order in Progress BODY SITE: SOURCE: Blood COLLECTED DATE/TIME: 08/18/15 5:11 PM Blood Culture No growth after 12 hours incubation. Nursing unit will be called if growth is detected. - A blood culture drawn through a catheter with a differential time to positivity at least 2 hours sooner than one drawn from a peripheral vein at the same time suggests a catheter-related bloodstream infection. TEST: Blood Culture STATUS: Order in Progress BODY SITE: SOURCE: Blood COLLECTED DATE/TIME: 08/18/15 5:10 PM Blood Culture No growth after 12 hours incubation. Nursing unit will be called if growth is detected. - A blood culture drawn through a catheter with a differential time to positivity at least 2 hours sooner than one drawn from a peripheral vein at the same time suggests a catheter-related bloodstream infection. Immunizations No data available for this section Procedures Procedure Date Related Diagnosis Body Site Left knee Left shoulder Tonsillectomy [place] tooth Social History Social History Type Response Smoking Status Former smoker; Type: Cigarettes Assessment and Plan No data available for this section
--- OUTSIDE RECORDS SUMMARY | 2017-01-07 22:52 | XMS REPORT | Referral Summary ---
Author Author [facility] Organization [facility] Address Unknown Phone Unavailable Care Team Providers Care Global Chief Creative Officer Name Role Phone Alex Martin Primary Care Physician [phone] Encounter Date(s): 02/25/16 - 02/25/16 [facility] [address] [place] [id number] [facility] Discharge Diagnosis: Sore throat Discharge Diagnosis: History of mononucleosis Discharge Diagnosis: Pharyngitis, streptococcal, acute Discharge Disposition: -Home or Self Care Attending Physician: Provider, Immediate Care Admitting Physician: Provider, Immediate Care Vital Signs Most recent to 1 oldest [Reference Range]: Temperature Oral 37.7 degC [35.8-37.3 degC] *HI* (02/25/16 5:18 PM) Peripheral Pulse 102 bpm Rate [60-100 bpm] *HI* (02/25/16 5:18 PM) Blood Pressure 126/77 mmHg [90-140/60-90 mmHg] (02/25/16 5:18 PM) SpO2 98 % (02/25/16 5:18 PM) Problem List Condition Effective Dates Status Health Status Informant Acute Active pain(Confirmed) At risk for Active infection(Confirmed) 1 At risk of pressure Active sore(Confirmed) Beta-hemolytic Active Streptococcus, group A(Confirmed)2 1Problem added automatically by system based on initiation of At Risk for Infection in Nutrition Plan of Care 2Strep Grp A in Throat from NOT FOUND collected 10/12/15 12:11:00 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 Allergies, Adverse Reactions, Alerts Substance Reaction Severity Status iodine Pharyngeal edema Severe Active Medications acetaminophen 650 mg, Oral, q6hr, as needed for fever, 0 Refill(s) Start Date: 08/18/15 Status: Ordered amoxicillin 875 mg oral tablet 875 mg 1 tabs, Oral, BID, X 10 days, # 20 tabs, 0 Refill(s), Pharmacy: [facility] [id number], 1 tabs Oral BID,x10 days Start Date: 02/25/16 Stop Date: 03/06/16 Status: Ordered ibuprofen 600 mg, Oral, q8hr, as needed for fever, 0 Refill(s) Start Date: 08/18/15 Status: Ordered Results Hematology Most recent to 1 oldest [Reference Range]: WBC [4.8-10.8 16.1 10*3/uL 10*3/uL] *HI* (02/25/16 6:08 PM) RBC [4.00-5.20] 4.82 (02/25/16 6:08 PM) Hgb [12.0-16.0 13.3 gm/dL gm/dL] (02/25/16 6:08 PM) Hct [37.0-47.0 %] 40.8 % (02/25/16 6:08 PM) MCV [82.0-99.0 fL] 84.6 fL (02/25/16 6:08 PM) MCH [27.0-32.0 pg] 27.6 pg (02/25/16 6:08 PM) MCHC [32.0-36.0 32.6 gm/dL gm/dL] (02/25/16 6:08 PM) RDW [11.5-14.5 %] 16.1 % *HI* (02/25/16 6:08 PM) Platelet [150-400 247 10*3/uL 10*3/uL] (02/25/16 6:08 PM) MPV [8.8-14.8 fL] 11.0 fL (02/25/16 6:08 PM) Neutrophils [51-75 86 % %] *HI* (02/25/16 6:08 PM) Lymphocytes [20-46 10 % %] *LOW* (02/25/16 6:08 PM) Monocytes [4-11 %] 4 % (02/25/16 6:08 PM) Eosinophils [0-4 %] 0 % (02/25/16 6:08 PM) Basophils [0-2 %] 0 % (02/25/16 6:08 PM) Neutro Absolute 13.85 10*3 [1.90-7.00 10*3] *HI* (02/25/16 6:08 PM) Lymph Absolute 1.61 10*3 [0.80-3.30 10*3] (02/25/16 6:08 PM) [place] Absolute 0.64 10*3 [0.30-1.00 10*3] (02/25/16 6:08 PM) Eos Absolute 0.00 10*3 [0.00-0.50 10*3] (02/25/16 6:08 PM) Baso Absolute 0.00 10*3 [0.00-0.20 10*3] (02/25/16 6:08 PM) Differential Manual *ABN* (02/25/16:08 PM) Chemistry Most recent to 1 oldest [Reference Range]: Sodium Lvl [135-144 141 mEq/L mEq/L] (02/25/16 6:08 PM) Potassium Lvl 4.0 mEq/L [3.5-5.2 mEq/L] (02/25/16 6:08 PM) Chloride [99-111 103 mEq/L mEq/L] (02/25/16 6:08 PM) CO2 [22-31 mEq/L] 28 mEq/L (02/25/16 6:08 PM) AGAP [3-20] 10 (02/25/16 6:08 PM) BUN [7-19 mg/dL] 9 mg/dL (02/25/16 6:08 PM) Glucose Lvl [70-99 105 mg/dL mg/dL] *HI* (02/25/16 6:08 PM) Creatinine Lvl 0.86 mg/dL [0.57-1.11 mg/dL] (02/25/16 6:08 PM) eGFR [>60 mL/min] >60 mL/min 1 (02/25/16 6:08 PM) Calcium Lvl 9.4 mg/dL [8.9-10.5 mg/dL] (02/25/16 6:08 PM) Albumin Lvl [3.5-5.0 4.8 gm/dL gm/dL] (02/25/16 6:08 PM) Total Protein 7.7 gm/dL [6.4-8.3 gm/dL] (02/25/16 6:08 PM) Globulin [1.8-4.0 2.9 gm/dL gm/dL] (02/25/16 6:08 PM) ALT [0-55 U/L] 13 U/L (02/25/16 6:08 PM) AST [5-34 U/L] 13 U/L (02/25/16 6:08 PM) Alk Phos [40-150 72 U/L U/L] (02/25/16 6:08 PM) Bili Total [0.2-1.2 0.6 mg/dL mg/dL] (02/25/16 6:08 PM) 1Result Comment: Multiply eGFR results by 1.21 for race. Immunizations No data available for this section Procedures Procedure Date Related Diagnosis Body Site Left knee Left shoulder Tonsillectomy [place] tooth Social History Social History Type Response Smoking Status Former smoker; Type: Cigarettes Assessment and Plan Extracted from: Title: Ambulatory Patient Education Author: Tammy Marie HRIS COORDINATOR Date: ENT Strep Throat Strep throat is an infection of the throat caused by a bacteria named Streptococcus pyogenes. Your health care provider may call the infection streptococcal "tonsillitis" or "pharyngitis" depending on whether there are signs of inflammation in the tonsils or back of the throat. Strep throat is most common in children aged 515 years during the cold months of the year, but it can occur in people of any age during any season. This infection is spread from person to person (contagious) through coughing, sneezing, or other close contact. SIGNS AND SYMPTOMS Fever or chills. Painful, swollen, red tonsils or throat. Pain or difficulty when swallowing. White or yellow spots on the tonsils or throat. Swollen, tender lymph nodes or "glands" of the neck or under the jaw. Red rash all over the body (rare). DIAGNOSIS Many different infections can cause the same symptoms. A test must be done to confirm the diagnosis so the right treatment can be given. A "rapid strep test" can help your health care provider make the diagnosis in a few minutes. If this test is not available, a light swab of the infected area can be used for a throat culture test. If a throat culture test is done, results are usually available in a day or two. TREATMENT Strep throat is treated with antibiotic medicine. HOME CARE INSTRUCTIONS Gargle with 1 tsp of salt in 1 cup of warm water, 34 times per day or as needed for comfort. Family members who also have a sore throat or fever should be tested for strep throat and treated with antibiotics if they have the strep infection. Make sure everyone in your household washes their hands well. Do not share food, drinking cups, or personal items that could cause the infection to spread to others. You may need to eat a soft food diet until your sore throat gets better. Drink enough water and fluids to keep your urine clear or pale yellow. This will help prevent dehydration. Get plenty of rest. Stay home from school, day care, or work until you have been on antibiotics for 24 hours. Take medicines only as directed by your health care provider. Take your antibiotic medicine as directed by your health care provider. Finish it even if you start to feel better. SEEK MEDICAL CARE IF: The glands in your neck continue to enlarge. You develop a rash, cough, or earache. You cough up green, yellow-brown, or bloody sputum. You have pain or discomfort not controlled by medicines. Your problems seem to be getting worse rather than better. You have a fever. SEEK IMMEDIATE MEDICAL CARE IF: You develop any new symptoms such as vomiting, severe headache, stiff or painful neck, chest pain, shortness of breath, or trouble swallowing. You develop severe throat pain, drooling, or changes in your voice. You develop swelling of the neck, or the skin on the neck becomes red and tender. You develop signs of dehydration, such as fatigue, dry mouth, and decreased urination. You become increasingly sleepy, or you cannot wake up completely. MAKE SURE YOU: Understand these instructions. Will watch your condition. Will get help right away if you are not doing well or get worse. This information is not intended to replace advice given to you by your health care provider. Make sure you discuss any questions you have with your health care provider. Document Released: 09/20/2001 Document Revised: 02/07/2015 Document Reviewed: [facility] Patient Information 2015 [facility]. No follow up information was provided. Extracted from: Title: Sore Throat * Author: Tammy Marie APRN Date: 02/25/16 Impression and Plan Diagnosis Pharyngitis, streptococcal, acute (GFH33-VS J02.0, Discharge, Medical). History of mononucleosis (PBU15-GS Z86.19, Discharge, Medical). Plan: Rapid strep test done in the office today was positive. Results were given to patient. CBC and CMP labs were drawn. Results showed WBCs 16.1 with elevated neutrophils. CMP was normal. Patient was given her results. [place] testing results are pending, and she is to call for her test results next week. Recommended that she rest, increase her fluid intake, and take Tylenol or Motrin PRN for fever or discomfort. Patient is to call her PCP for a follow-up appointment next week. Patient Instructions: Strep Throat. Counseled: Patient, Verbalized understanding.
--- OUTSIDE RECORDS SUMMARY | 2017-01-07 22:52 | XMS REPORT ---
Author Mira Sierra Organization [employer] Address Unknown Phone Unavailable Care Team Providers Care Cloth Finishing Range Operator Name Role Phone Mira Martin CP Unavailable Allergies No Known Allergies Problems Problem Type Condition Code Onset Dates Condition Status Problem Contraception maintenance V25.40 Active Problem Anxiety disorder NOS 300.00 Active Problem Migraine, unspecified, with intractable migraine, with status migrainosus 346.93 Active Medications No Known Medications Results No Known Results Summary Purpose [employer] Submission
--- OUTSIDE RECORDS SUMMARY | 2017-01-07 22:52 | XMS REPORT | Referral Summary ---
Author Author [facility] Organization [facility] Address Unknown Phone Unavailable Care Team Providers Care Kinder Teacher Name Role Phone Alex Martin Primary Care Physician [phone] Encounter VC Date(s): 06/22/15 - 07/06/15 [facility] [address] [place] [address] Final: CARE INVOLVING OTHER PHYSICAL THERAPY Final: ANKYLOSIS OF LOWER LEG JOINT Discharge Disposition: 01-Home or Self Care Attending [...] Throat from NOT FOUND collected 10/12/15 12:11:00 NURSE SITTER Allergies, Adverse Reactions, Alerts Substance Reaction Severity Status iodine Pharyngeal edema Severe Active Medications acetaminophen 650 mg, Oral, q6hr, as needed for fever, 0 Refill(s) Start Date: 08/18/15 Status: Ordered albuterol CFC free 90 mcg/inh inhalation aerosol 2 puffs, Inhalation, Once, as needed for wheezing, # 8 g, 0 Refill(s) Start Date: 10/12/15 Status: Ordered albuterol CFC free 90 mcg/inh inhalation aerosol 2 puffs, Inhalation, q4hr, as needed for wheezing, # 18 g, 0 Refill(s) Start Date: 11/08/15 Status: Ordered Azithromycin 5 Day Dose Pack 250 mg oral tablet 1 packets, Oral, Once, as directed on package labeling, # 6 tabs, 0 Refill(s) Start Date: 10/12/15 Status: Ordered Azithromycin 5 Day Dose Pack 250 mg oral tablet 1 packets, Oral, Once, as directed on package labeling, # 6 tabs, 0 Refill(s) Start Date: 11/08/15 Status: Ordered Fioricet oral tablet 2 tabs, Oral, q6hr, Headache, # 28 tabs, 0 Refill(s), Pharmacy: [facility] Start Date: 08/22/15 Status: Ordered ibuprofen 600 mg, Oral, q8hr, as needed for fever, 0 Refill(s) Start Date: 08/18/15 Status: Ordered Results No data available for this section Immunizations No data available for this section Procedures Procedure Date Related Diagnosis Body Site Left knee Left shoulder Tonsillectomy [place] tooth Social History Social History Type Response Smoking Status Former smoker; Type: Cigarettes Assessment and Plan No data available for this section
--- OUTSIDE RECORDS SUMMARY | 2017-01-07 22:52 | XMS REPORT ---
Author Mira Sierra Organization [employer] Address Unknown Phone Unavailable Care Team Providers Care Nut Feeder Name Role Phone Mira Martin CP Unavailable Allergies No Known Allergies Problems Problem Type Condition ICD-9 Code Onset Dates Condition Status Problem Contraception maintenance V25.40 Active Problem Anxiety disorder NOS 300.00 Active Problem Migraine, unspecified, with intractable migraine, with status migrainosus 346.93 Active Medications No Known Medications Results No Known Results Summary Purpose [employer] Submission
--- NOTE | 2017-01-07 23:09 | ERPDOC ---
Departure Disposition Decision Date: Jan 08, 2017 Disposition Decision Time: 02:26 () Disposition: 02 TO [facility] Impression Impression (LOLA COOK APRN) Impression: Primary Impression: Appendicitis, acute Acute appendicitis type: unspecified acute appendicitis type Qualified Codes : K35.80 - Unspecified acute appendicitis Severity: Moderate () Condition: Improved Seen By: Physician only () Problems/Meds/Labs Reviewed?: Yes Medications reviewed and manag: Yes () Follow up care ordered?: Yes Mental Status: Alert, Oriented () Scripts Polyethylene Glycol 3350 (Miralax) 17 Gm Powd.pack 1 PACKET PO DAILY Y for CONSTIPATION, #30 PACKET 3 Refills Prov: JENNY KELSEY APRN, CWS 01/09/17 Ibuprofen (Ibuprofen) 600 Mg Tablet 600 MG PO Q6H Y for PAIN for 14 Days, #56 TAB Prov: JENNY KELSEY APRN, CWS 01/09/17 Hydrocodone/Acetaminophen ([place] 5-325 Tablet) 5-325 Tablet 1-2 TAB PO Q5H Y for PAIN, #20 TAB Prov: JENNY KELSEY APRN, CWS 01/09/17 HPI - Abdominal Pain General Chief Complaint: Abdominal Pain Stated Complaint: RIGHT SIDED PAIN Time Seen by Provider: 22:59 Source: patient History/Exam Limitations: no limitations (LOLA COOK APRN) Time Seen by Provider: 22:59 () HPI - Abdominal Pain Initial Comments She has had right lower quadrant abdominal pain for the last 2 days. Has steadily gotten worse. Has not had a fever or chills but has had nausea and has not wanted to eat or drink anything at all. Pain is worse with movement and noted that when I lay her flat for exam she winces and pulls her right leg into flexed position at knee and hip. Denies any diarrhea. Has had pain similar to this 20 years ago when she had an ovarian cyst and she thinks that is what this is. Occurred At: home Onset: Gradual Duration: other (Over the last 2 days) Quality: sharpness Location: RLQ Radiation: no radiation Associated Symptoms: nausea/vomiting (nausea and anorexia), DENIES: back pain, chest pain, diaphoresis, fatigue, fever/chills, headache, heartburn, rash, shortness of breath, swelling/mass in abdomen, syncope, weakness Hx of Similar Symptoms: Yes (20 years ago when she had an ovarian cyst) (NOVALENCIA,LOLA N AIR SAMPLING AND MONITORING) Allergies: Coded Allergies: iodine (Verified Allergy, Severe, ANAPHYLACTIC SHOCK, 01/07/17) Past History Past Medical History Pt denies signifigant PMH (NOLD,LOLA N AIR SAMPLING AND MONITORING) Surgical History Denies Surgeries (NOLD,LOLA N AIR SAMPLING AND MONITORING) Family History Family History: Negative (NOVALENCIA,LOLA N AIR SAMPLING AND MONITORING) Social History Smoking Status: Never smoker Substance Use Type: does not use Alcohol Intake: none (NOLD,LOLA N AIR SAMPLING AND MONITORING) Review of Systems Constitutional Constitutional: appetite decrease, DENIES: chills, dizziness, fatigue, fever, weakness (NOLD,LOLA N AIR SAMPLING AND MONITORING) Cardiovascular Cardiac: DENIES: chest pain, orthopnea Rhythm/Rate: DENIES: irregular beat, palpitations (NOLD,LOLA N AIR SAMPLING AND MONITORING) Pulmonary Respiratory: DENIES: cough, dyspnea, sputum, tachypnea (NOLD,LOLA N AIR SAMPLING AND MONITORING) GI Upper Abdomen: nausea, DENIES: pain, vomiting Lower Abdomen: pain, DENIES: blood in stool, constipation, diarrhea (NOLD, LOLA N AIR SAMPLING AND MONITORING) General: DENIES: dysuria, frequency, urgency (NOLD,LOLA N AIR SAMPLING AND MONITORING) Neurological General: DENIES: headache, numbness, tingling, weakness (NOLD,LOLA N AIR SAMPLING AND MONITORING) Physical Exam General General Nourishment: well nourished, well developed, appears stated age, no acute distress, adult General Body Habitus: well groomed (NOLD,LOLA N AIR SAMPLING AND MONITORING) Vitals and Pain First Documented Vital Signs Date Time Temp Pulse Resp B/P Pulse Ox O2 Delivery O2 Flow Rate FiO2 01/09/17 00:46 98.2 85 20 123/71 95 Room Air (FEBRUARY,DANIELLA DO) Vitals and Pain Weight: Kilograms: 73.300 Height (feet): 5 Height (inches): 9.00 Triage Pain Scale: (JOYCE,LOLA N AIR SAMPLING AND MONITORING) RN VS reviewed by Provider: Yes (LOLA COOK APRN) Normal Exams: ENMT: No facial trauma, nasal exudates, pharyngeal erythema, or exudates are noted Neck: Full range of motion, without adenopathy, JVD, bruits or thyromegaly Chest/Resp: Clear all taylor, with good airflow, and symmetry bilaterally CV: Regular rate and rhythm, without murmur or gallop, Pulses 2+ all extremities, capillary refill, <2 seconds all ext., no pedal edema noted Lymphatic: No lymphadenopathy, or lymphedema noted Integumentary: No rashes, hives, or bruising noted Neurologic: Patient is alert, and oriented Psychiatric: Patient exhibits, appropriate attention, emotion and affect (LOLA COOK APRN) Abdomen Inspection: NOT FOUND: distention Palpation: FOUND: involuntary guarding, soft, tender (Moderate TTP in the RLQ) , NOT FOUND: rebound, voluntary guarding Auscultation: FOUND: normoactive (LOLA COOK APRN) Differential Diagnoses Considering: Appendicitis, Bowel Obstruction, Constipation, Diverticulitis, Ovarian Cyst, Ovarian Torsion (LOLA COOK APRN) Progress Results/Orders Orders (FEBRUARY,[facility] ) Lab Results (FEBRUARY,[facility] ) Lab Results Laboratory Tests Test 01/07/17 23:28 01/07/17 23:29 White Blood Count 7.9T/MM3 Red Blood Count 4.69M/MM3 Hemoglobin 13.9GM/DL Hematocrit 42.3% Mean Corpuscular Volume 90.2UM3 Mean Corpuscular Hemoglobin 29.6UUG Mean Corpuscular Hemoglobin Concent 32.9GM/DL RDW Standard Deviation 43.2FL Platelet Count 228T/MM3 Mean Platelet Volume 11.2UM3 Immature Granulocyte % (Auto) 0.0% Neutrophils (%) (Auto) 56.7% Lymphocytes (%) (Auto) 34.3% Monocytes (%) (Auto) 6.9% Eosinophils (%) (Auto) 1.5% Basophils (%) (Auto) 0.6% Absolute Immature Granulocyte (auto 0.00T/MM3 Absolute Neutrophils (auto) 4.5T/MM3 Absolute Lymphocytes (auto) 2.7T/MM3 Absolute Monocytes (auto) 0.6T/MM3 Absolute Eosinophils (auto) 0.1T/MM3 Absolute Basophils (auto) 0.1T/MM3 Turbidity 28 Sodium Level 148MEQ/L Potassium Level 3.9MEQ/L Chloride Level 107MEQ/L Carbon Dioxide Level 27MEQ/L Anion Gap 14MEQ/L Blood Urea Nitrogen 16.0MG/DL Creatinine 1.0MG/DL Glomerular Filtration Rate Calc 61 BUN/Creatinine Ratio 16RATIO Glucose Level 103MG/DL Calculated Osmolality 285MOSM/KG Calcium Level 9.3MG/DL Total Bilirubin 0.60MG/DL Icterus Index < 2 Aspartate Amino Transf (AST/SGOT) 18U/L Alanine Aminotransferase (ALT/SGPT) 29U/L Alkaline Phosphatase 67U/L Total Protein 7.7G/DL Albumin 4.5G/DL Globulin 3.2G/DL Albumin/Globulin Ratio 1.4RATIO Chemistry Specimen Hemolysis < 15 Human Chorionic Gonadotropin, Qual Negative (NOLD,LOLA Reyes APRN) Medications Current ED Medications Sodium Chloride (Normal Saline IV) 1,000 ml @ 1,000 mls/hr Q1H ONCE IV Last administered on 01/07/17 23:17; Start 01/07/17 at 23:15; Stop 01/08/17 at 00:14; Status DC Ondansetron HCl (Zofran) 4 mg O ONCE IV Last administered on 01/07/17 23:25; Start 01/07/17 at 23:15; Stop 01/07/17 at 23:16; Status DC Morphine Sulfate 4 mg 4 mg O ONCE IV Last administered on 01/07/17 23:25; Start 01/07/17 at 23:15; Stop 01/07/17 at 23:16; Status DC Lactated Ringer's (Lactated Ringers) 1,000 ml @ 125 mls/hr Q8H IV Last administered on 01/09/17 08:43; Start 01/08/17 at 01:13; Stop 01/09/17 at 18:01; Status DC () Progress Progress CT results suggestive of acute appendicitis. Gen Surg consulted; pt admitted for likely appy in AM. () Consult/PCP Consult/PCP : Physician Contacted: Dr. Avila Time Called: 01:06 Time of first response: 01:13 Type of discussion: Phone Consult/PCP Discussion Details Requested admission with brief orders. Will eval later this AM. ([facility]) LOLA COOK Jan 07, 2017 23:09 FEBRUARY,[facility] Jan 08, 2017 01:06 Aspartate Amino Transf (AST/SGOT) 18U/L Alanine Aminotransferase (ALT/SGPT) 29U/L Alkaline Phosphatase 67U/L Total Protein 7.7G/DL Albumin 4.5G/DL Globulin 3.2G/DL Albumin/Globulin Ratio 1.4RATIO Chemistry Specimen Hemolysis < 15 Human Chorionic Gonadotropin, Qual Negative (FEBRUARY,[facility] ) Lab Results Laboratory Tests Test 01/07/17 23:28 01/07/17 23:29 White Blood Count 7.9T/MM3 Red Blood Count 4.69M/MM3 Hemoglobin 13.9GM/DL Hematocrit 42.3% Mean Corpuscular Volume 90.2UM3 Mean Corpuscular Hemoglobin 29.6UUG Mean Corpuscular Hemoglobin Concent 32.9GM/DL RDW Standard Deviation 43.2FL Platelet Count 228T/MM3 Mean Platelet Volume 11.2UM3 Immature Granulocyte % (Auto) 0.0% Neutrophils (%) (Auto) 56.7% Lymphocytes (%) (Auto) 34.3% Monocytes (%) (Auto) 6.9% Eosinophils (%) (Auto) 1.5% Basophils (%) (Auto) 0.6% Absolute Immature Granulocyte (auto 0.00T/MM3 Absolute Neutrophils (auto) 4.5T/MM3 Absolute Lymphocytes (auto) 2.7T/MM3 Absolute Monocytes (auto) 0.6T/MM3 Absolute Eosinophils (auto) 0.1T/MM3 Absolute Basophils (auto) 0.1T/MM3 Turbidity 28 Sodium Level 148MEQ/L Potassium Level 3.9MEQ/L Chloride Level 107MEQ/L Carbon Dioxide Level 27MEQ/L Anion Gap 14MEQ/L Blood Urea Nitrogen 16.0MG/DL Creatinine 1.0MG/DL Glomerular Filtration Rate Calc 61 BUN/Creatinine Ratio 16RATIO Glucose Level 103MG/DL Calculated Osmolality 285MOSM/KG Calcium Level 9.3MG/DL Total Bilirubin 0.60MG/DL Icterus Index < 2 Aspartate Amino Transf (AST/SGOT) 18U/L Alanine Aminotransferase (ALT/SGPT) 29U/L Alkaline Phosphatase 67U/L Total Protein 7.7G/DL Albumin 4.5G/DL Globulin 3.2G/DL Albumin/Globulin Ratio 1.4RATIO Chemistry Specimen Hemolysis < 15 Human Chorionic Gonadotropin, Qual Negative (LOLA COOK APRN) Medications Current ED Medications Sodium Chloride (Normal Saline IV) 1,000 ml @ 1,000 mls/hr Q1H ONCE IV Last administered on 01/07/17 23:17; Start 01/07/17 at 23:15; Stop 01/08/17 at 00:14; Status DC Ondansetron HCl (Zofran) 4 mg O ONCE IV Last administered on 01/07/17 23:25; Start 01/07/17 at 23:15; Stop 01/07/17 at 23:16; Status DC Morphine Sulfate 4 mg 4 mg O ONCE IV Last administered on 01/07/17 23:25; Start 01/07/17 at 23:15; Stop 01/07/17 at 23:16; Status DC Lactated Ringer's (Lactated Ringers) 1,000 ml @ 125 mls/hr Q8H IV ; Start at 01:13 (FEBRUARYDANIELLA DO) Progress Progress CT results suggestive of acute appendicitis. Gen Surg consulted; pt admitted for likely appy in AM. (FEBRUARY,DANIELLA Johnson DO) Consult/PCP Consult/PCP : Physician Contacted: Dr. Avila Time Called: 01:06 Time of first response: 01:13 Type of discussion: Phone Consult/PCP (FEBRUARYDANIELLA DO) LOLA COOK APRN Jan 07, 2017 23:09 FEBRUARYDANIELLA DO Jan 08, 2017 01:06
[2017-01-07] MEDS ORDERED: ONDANSETRON 4mg/2ml INJECTION IV ONE (23:15)
[2017-01-07] MEDS ORDERED: MORPHINE SULFATE 4 MG SYRINGE IV ONE (23:15)
[2017-01-07] MEDS ORDERED: NORMAL SALINE 1,000 ML IV ONE (23:15)
[2017-01-07 23:40] LABS: BASOPHILS # (AUTO) 0.1 T/MM3 (0-0.2); BASOPHILS % (AUTO) 0.6 % (0-2); EOSINOPHILS # (AUTO) 0.1 T/MM3 (0-0.5); EOSINOPHILS % (AUTO) 1.5 % (0-4); HCT - HEMATOCRIT 42.3 % (36-46); HGB - HEMOGLOBIN 13.9 GM/DL (12-16); LYMPHOCYTES # (AUTO) 2.7 T/MM3 (1-4.8); LYMPHOCYTES % (AUTO) 34.3 % (23-45); MEAN CORPUSCULAR HGB 29.6 UUG (26-34); MEAN CORPUSCULAR HGB CONC(MCHC 32.9 GM/DL (31-37); MEAN CORPUSCULAR VOLUME 90.2 UM3 (80-100); MEAN PLATELET VOLUME 11.2 UM3 (9.4-12.4); MONOCYTES # (AUTO) 0.6 T/MM3 (0-0.8); MONOCYTES % (AUTO) 6.9 % (0-9.0); NEUTROPHILS #(AUTO)-ABSOLUTE 4.5 T/MM3 (1.8-7.7); NEUTROPHILS % (AUTO) 56.7 % (33-66); RED BLOOD COUNT 4.69 M/MM3 (4.00-5.20); WBC - WHITE BLOOD COUNT 7.9 T/MM3 (4.5-11.0)
[2017-01-07] MEDS ORDERED: No Routine Meds (23:44)
[2017-01-07 23:47] LABS: ALBUMIN 4.5 G/DL (3.5-5.0); ALBUMIN/GLOBULIN RATIO 1.4 RATIO (1.1-2.2); ALKALINE PHOSPHATASE 67 U/L (38-126); ALT (SGPT) 29 U/L (9-52); ANION GAP 14 MEQ/L (5-15); AST (SGOT) 18 U/L (14-36); BUN/CREATININE RATIO 16 RATIO (6-26); CALCIUM 9.3 MG/DL (8.4-10.2); CHLORIDE 107 MEQ/L (98-107); CO2 - CARBON DIOXIDE 27 MEQ/L (22-30); GLOMERULAR FILTRATION RATE 61; GLUCOSE 103 MG/DL (65-110); POTASSIUM 3.9 MEQ/L (3.6-5); SODIUM 148 MEQ/L (134-144); TOTAL PROTEIN 7.7 G/DL (6.3-8.2)
[2017-01-08] VITALS (27 sets, daily range): BP systolic 123–182; BP diastolic 67–107; PULSE 70–106; RESP 11–24; TEMP 97–98.7; O2SAT 91–100; Ht 175.3 cm; Wt 75.0 kg
--- NOTE | 2017-01-08 00:30 | NUR ---
IMAGING PT LEAVES WITH IMAGING STAFF AT THIS TIME.
--- NOTE | 2017-01-08 00:45 | NUR ---
ROOM PT RETURNS TO ROOM.
[2017-01-08] MEDS: LR 1,000 ML IV SCH ×3 (01:13→23:56)
[2017-01-08] MEDS ORDERED: ERTAPENEM 1 G in NORMAL SALINE 100 ML IV ONE (01:15)
[2017-01-08] MEDS ORDERED: NORMAL SALINE 1,000 ML IV ONE (01:15)
--- NOTE | 2017-01-08 01:18 | NUR ---
BR PT AMBULATES TO BR AT THIS TIME.
--- NOTE | 2017-01-08 01:41 | NUR ---
REPORT GIVEN TO ALOK BRANHAM AT THIS TIME.
--- NOTE | 2017-01-08 01:50 | NUR ---
DEPART PT IS TRANSPORTED VIA CART TO ROOM 130 AT THIS TIME, ALOK BRANHAM AT BEDSIDE.
[2017-01-08] MEDS: MORPHINE SULFATE 2 MG SYRINGE IV PRN ×2 (02:25→07:40)
[2017-01-08] MEDS ORDERED: PIPERACILLIN/TAZOBACTAM 3.375 G in NORMAL SALINE 100 ML IV SCH (03:00)
[2017-01-08] MEDS: ONDANSETRON 4mg/2ml INJECTION IV PRN ×3 (07:30→18:15)
--- NOTE | 2017-01-08 07:46 | DI ---
Indication: ITS.REASON: Abdominal pain PROCEDURE: CT ABD/PELVIS W/O CONTRAST: Encounter: Initial Comparison: None Technique: Axial CT images were performed through the abdomen and pelvis without intravenous contrast. Coronal and sagittal two-dimensional reformats. Automated Exposure Control and Iterative Reconstruction dose reducing techniques were utilized. Findings: The lung bases are clear. The unenhanced contours of the liver, gallbladder, spleen, pancreas and adrenal glands are within normal limits. The kidneys appear normal. No abdominal or pelvic adenopathy. Bladder is normal. No free fluid. Uterus is within normal limits. No evidence of a bowel obstruction. The appendix is normal. Clips in the right abdomen apparently represent displaced tubal ligation clips. Bone windows show no acute findings. Impression: No acute disease process seen. There is a preliminary report by [facility]. .
--- NOTE | 2017-01-08 08:08 | HPPDOC ---
HPI - Adult Date DATE: 01/08/17 TIME: 08:02 General Chief Complaint: RLQ pain History of Present Illness Per Dr. Avila Past Medical History Past Medical History Patient's Medical History: (1) No chronic problems Surgical History Patient's Surgical History: Left shoulder surgery x2 Right knee surgery x2 Tubal ligation Current Medications Home Meds Reported Medications [No Routine Meds] No Conflict Check 01/07/17 Allergies: Coded Allergies: iodine (Verified Allergy, Severe, ANAPHYLACTIC SHOCK, 01/07/17) Family History Family History: Father of CHF, DM Mother- HTN Maternal grandmother - breast cancer Social History Smoking Status: Never smoker Substance Use Type: does not use Alcohol Intake: occasionally Advance Directives: No DPOA for Healthcare Only Review of Systems Constitutional: DENIES: chills, fever Eyes Vision: DENIES: blurring ENMT Hearing: DENIES: hearing loss Cardiovascular DENIES: chest pain Pulmonary Respiratory: DENIES: dyspnea GI Upper Abdomen: nausea, pain (RLQ) Lower Abdomen: DENIES: blood in stool, diarrhea General: DENIES: dysuria Musculoskeletal General: DENIES: joint pain Integumentary Skin: DENIES: rash Neurological General: headache (currently, she thinks from lack of food), DENIES: seizures Psychiatric Psychiatric: DENIES: depression, emotional instability Endocrine DENIES: heat/cold intolerance Hematologic/Lymphatic DENIES: easy bruising Allergic/Immunological DENIES: frequent infections Physical Exam General Vital Signs Vital Signs Date Time Temp Pulse Resp B/P Pulse Ox O2 Delivery O2 Flow Rate FiO2 01/08/17 07:40 16 01/08/17 01:59 93 141/87 97 Room Air 01/08/17 01:57 97.0 Height (Feet): 5 Height (Inches): 9.00 Neurologic RN Documented GCS Eye Opening: Verbal: Motor: Total: Laboratory Laboratory Tests Test 01/07/17 23:28 01/07/17 23:29 White Blood Count 7.9T/MM3 Red Blood Count 4.69M/MM3 Hemoglobin 13.9GM/DL Hematocrit 42.3% Mean Corpuscular Volume 90.2UM3 Mean Corpuscular Hemoglobin 29.6UUG Mean Corpuscular Hemoglobin Concent 32.9GM/DL RDW Standard Deviation 43.2FL Platelet Count 228T/MM3 Mean Platelet Volume 11.2UM3 Immature Granulocyte % (Auto) 0.0% Neutrophils (%) (Auto) 56.7% Lymphocytes (%) (Auto) 34.3% Monocytes (%) (Auto) 6.9% Eosinophils (%) (Auto) 1.5% Basophils (%) (Auto) 0.6% Absolute Immature Granulocyte (auto 0.00T/MM3 Absolute Neutrophils (auto) 4.5T/MM3 Absolute Lymphocytes (auto) 2.7T/MM3 Absolute Monocytes (auto) 0.6T/MM3 Absolute Eosinophils (auto) 0.1T/MM3 Absolute Basophils (auto) 0.1T/MM3 Turbidity 28 Sodium Level 148MEQ/L Potassium Level 3.9MEQ/L Chloride Level 107MEQ/L Carbon Dioxide Level 27MEQ/L Anion Gap 14MEQ/L Blood Urea Nitrogen 16.0MG/DL Creatinine 1.0MG/DL Glomerular Filtration Rate Calc 61 BUN/Creatinine Ratio 16RATIO Glucose Level 103MG/DL Calculated Osmolality 285MOSM/KG Calcium Level 9.3MG/DL Total Bilirubin 0.60MG/DL Icterus Index < 2 Aspartate Amino Transf (AST/SGOT) 18U/L Alanine Aminotransferase (ALT/SGPT) 29U/L Alkaline Phosphatase 67U/L Total Protein 7.7G/DL Albumin 4.5G/DL Globulin 3.2G/DL Albumin/Globulin Ratio 1.4RATIO Chemistry Specimen Hemolysis < 15 Human Chorionic Gonadotropin, Qual Negative Assessment & Plan Code Status Full Code Hospital Course Summary Disclaimer The hospital course summary below is not to be considered part of the above Progress Note. JENNY KELSEY APRN, CWS Jan 08, 2017 08:06
--- NOTE | 2017-01-08 08:42 | NUR ---
CM CM IN TO VISIT PATIENT, SHE IS A&O. NO FAMILY IS IN THE ROOM. PATIENT PLANS TO DISCHARGE HOME, DENIES DISCHARGE NEEDS AT THIS TIME, DOES HAVE HELP IN THE HOME IF NEEDED. CM CONTACT INFORMATION PROVIDED. Addendum: 01/08/17 at 0843 by HANNA LUNA RN Amended: Links added.
[2017-01-08] MEDS ORDERED: KETOROLAC 30mg/ml INJECTION IV PRN (09:00)
--- NOTE | 2017-01-08 10:22 | DI ---
Indication: ITS.REASON: Abdominal pain, evaluate for appendicitis, or ovarian cyst PROCEDURE: US PELVIC NON OB W/TRANS VAG: Encounter: Initial Comparison: CT abdomen and pelvis dated January 08, 2017 FINDINGS: Transvaginal and transabdominal pelvic imaging was performed. The uterus measures 6.7 x 3.3 x 3.9 cm. The parenchyma is homogeneous without fibroids. The endometrial stripe measures 3 mm in thickness. There is no evidence of focal endometrial mass. Both ovaries are identified and normal in appearance. The right ovary measures 2.2 x 2.2 x 1.5 cm. The left ovary measures 2.4 x 1.7 x 1.7 cm. There are no abnormal adnexal masses detected. Normal Doppler flow seen to both ovaries. No free fluid. No sonographic abnormality in the right lower quadrant area of pain. IMPRESSION: Normal pelvic sonogram. .
--- NOTE | 2017-01-08 11:23 | HPF ---
FINDINGS Faiza is a 41-year-old female whom I was asked to see late last evening/earlier this morning as a result of her history and physical findings of abdominal pain and a reported abnormal CT scan. Upon questioning the patient she informs me that about two days ago she began to notice a component of abdominal discomfort. This pain has been located within her right lower quadrant of her abdomen. Over the last two days this pain has progressively became more severe in nature. She denies any history for fever or chills. She has been somewhat nauseated in association with the pain. This morning the patient states that she had developed a migraine headache and actually had a component of some emesis. The patient states the pain is made worse with movement or ambulation. The pain is made somewhat better by lying still. When questioned in regards to any history of having abdominal pain similar to this in the past she informs me that about 20 years ago she had an ovarian cyst. She states that this pain she is experiencing is somewhat similar to the pain that she had in the remote past. PAST MEDICAL HISTORY Performed by my nurse practitioner, Tejas Livingston. PAST SURGICAL HISTORY Performed by my nurse practitioner, Tejas Livingston. MEDICATIONS Performed by my nurse practitionerTejas. ALLERGIES Performed by my nurse practitionerTejas. SOCIAL HISTORY Performed by my nurse practitionerTejas. FAMILY HISTORY Performed by my nurse practitionerTejas. REVIEW OF SYSTEMS Performed by my nurse practitionerTejas. PHYSICAL EXAMINATION GENERAL: Mrs. Johnston is a 41-year-old female who upon entering the room this morning did appear to be in some discomfort. VITALS: Patient has been afebrile since admission. Current vitals include temperature 97.3, pulse 72, respirations 16, blood pressure 144/88, SAO2 94% on room air. HEENT: Normocephalic. Pupils equal, round, reactive to light and accommodation. NECK: Supple without lymphadenopathy. CHEST: Clear to auscultation bilaterally. HEART: Regular rate and rhythm. ABDOMEN: Soft. The patient was found to have point tenderness just cephalad to the right anterior iliac spine and further lateral than one would typically see for appendicitis. The patient did have a component of some voluntary guarding with palpation at this location. She did not have any evidence for involuntary guarding or rebound tenderness. The remaining abdomen was nontender upon palpation. She did not have a positive Rovsing's sign, i.e. firm palpation of the left lower quadrant did not elicit pain within her right lower quadrant. EXTREMITIES: Without clubbing, cyanosis, or edema. NEURO: Cranial nerves II-XII grossly intact. Patient is without focal motor or sensory deficits. LABORATORY/RADIOGRAPHIC EVALUATION Patient had a CBC upon admission and her white count was normal at 7.9. Hemoglobin was normal at 13.9. CMP was obtained and found to be essentially within normal limits. CT scan of her abdomen and pelvis was obtained. Our radiologist stated that there was no acute disease process seen. It was reported to me last evening that the CT scan did reveal evidence for some stranding in the vicinity of the appendix and was somewhat suspicious for appendicitis. Outside report stated that the distal tip of the appendix was adjacent to the right lobe of the liver and there did appear to be some stranding and perhaps a small amount of fluid adjacent to it. Outside radiology felt that one cannot exclude "tip appendicitis." ASSESSMENT 41-year-old female with a several day history of persistent right mid/lateral abdominal pain of uncertain etiology. PLAN The patient was informed that her clinical history and physical findings, laboratory results and radiographic results are not highly suspicious for appendicitis. Nonetheless, she does have persistent abdominal pain of uncertain etiology. I informed the patient that as a general rule about 90% of patients will have a component of some leukocytosis upon laboratory evaluation whom have appendicitis. Additionally as a general rule, CT scan tends to be fairly sensitive and specific for appendicitis. Having said that I informed the patient however that I have had several patients over the last 20 years who have presented somewhat atypically and do not follow the normal radiographic and laboratory findings for appendicitis. It was my recommendation at this point in time we go ahead and obtain a pelvic ultrasound to rule out gynecologic etiology for her abdominal pain with more certainty. We will continue to follow serial abdominal examinations. We will repeat CBC later today. If the patient continues to have ongoing persistent pain we may later this afternoon/early evening proceed with diagnostic laparoscopy for further evaluation of her ongoing abdominal pain. The proposed plan was discussed with the patient. She understood and agreed. FRANCESCO
[2017-01-08] MEDS: HYDROMORPHONE 2mg/ml INJECTION IV PRN ×2 (14:04→18:29)
[2017-01-08 14:34] LABS: BASOPHILS % (AUTO) 0.4 % (0-2); EOSINOPHILS % (AUTO) 0.3 % (0-4); HCT - HEMATOCRIT 42.9 % (36-46); HGB - HEMOGLOBIN 14.2 GM/DL (12-16); IMMATURE GRANULOCYTE # (AUTO) 0.01 T/MM3 (0.00-0.03); IMMATURE GRANULOCYTE % (AUTO) 0.1 % (0.0-0.5); LYMPHOCYTES # (AUTO) 2.1 T/MM3 (1-4.8); LYMPHOCYTES % (AUTO) 26.4 % (23-45); MEAN CORPUSCULAR HGB 29.5 UUG (26-34); MEAN CORPUSCULAR HGB CONC(MCHC 33.1 GM/DL (31-37); MEAN CORPUSCULAR VOLUME 89.2 UM3 (80-100); MEAN PLATELET VOLUME 10.6 UM3 (9.4-12.4); MONOCYTES # (AUTO) 0.4 T/MM3 (0-0.8); MONOCYTES % (AUTO) 4.5 % (0-9.0); NEUTROPHILS #(AUTO)-ABSOLUTE 5.4 T/MM3 (1.8-7.7); NEUTROPHILS % (AUTO) 68.3 % (33-66); RED BLOOD COUNT 4.81 M/MM3 (4.00-5.20); WBC - WHITE BLOOD COUNT 7.9 T/MM3 (4.5-11.0)
--- NOTE | 2017-01-08 14:57 | ANESPREOP ---
Anesthesia Record Date and Time DATE: 01/08/17 TIME: 14:54 Pre-Op Diagnosis ABD pain Proposed Surgical Procedure Dx Laparoscopy NPO since: Midnight Allergies: Coded Allergies: iodine (Verified Allergy, Severe, ANAPHYLACTIC SHOCK, 01/07/17) Ht/Wt/BMI Height: 5 ' 9.00 " Weight: 74.500 kg BMI: 24.2 kg/m2 Vital Signs Date Time Temp Pulse Resp B/P Pulse Ox O2 Delivery O2 Flow Rate FiO2 01/08/17 14:04 15 01/08/17 08:05 97.3 72 144/88 94 Room Air Medications Inpatient Medications Current Medications Medications (Trade) Dose Ordered Sig/Koko Start Time Stop Time Status Last Admin Dose Admin Piperacillin Sod/ Tazobactam Sod 3.375 g/Sodium Chloride 100 ml @ 200 mls/hr Q6HR 01/08/17 03:00 Cancel Lactated Ringer's (Lactated Ringers) 1,000 ml @ 125 mls/hr Q8H 01/08/17 01:13 01/08/17 10:09 125 MLS/HR Morphine Sulfate (Morphine) 2 mg Q2HR PRN 01/08/17 01:15 01/08/17 07:40 2 MG Ondansetron HCl (Zofran) 4 mg Q6H PRN 01/08/17 01:15 01/08/17 07:30 4 MG Ketorolac Tromethamine (Toradol) 30 mg Q6H PRN 01/08/17 09:00 01/08/17 08:58 30 MG Hydromorphone HCl (Dilaudid) DILAUDID 0.5-1MG IV Q2H ... Q2H PRN 01/08/17 14:00 01/08/17 14:04 1 MG [No Routine Meds] , (Reported) Currently on Beta Clarissa: No Medical/Surgical History Anesthesia PMH: Reports: Asthma (childhood asthma), Pneumonia, Denies: * Hypertension, *SC, Blood Transfusion Reac, CHF, COPD, CVA/Stroke/TIA, Cancer, , Seizures Smoking Status: Never smoker Has pt. smoked today?: No Use Chewing Tobacco?: No Second Hand Exposure: No Substance Use Type: does not use Alcohol Intake: rarely Past Surgical History Orthopedic Surgeries: Yes - L Knee x2, L shoulder x2 Abdominal Surgeries: Genitourinary Surgeries: Cardiac Surgeries: Endocrine Surgeries: Reproductive Surgeries: Yes - Tubal Clips Neurological Surgeries: Ear Surgeries: Nose Surgeries: Throat Surgeries: Yes - [place] teeth Other Surgeries: Yes Anesthesia Adverse Reactions: FOUND none Family Hx of Anesthesia Advers: none Hx of Motion Sickness: No Pertinent Findings Laboratory Tests 01/07/17 23:28 01/08/17 14:01 Test 01/07/17 23:29 Human Chorionic Gonadotropin, Qual Negative (NEGATIVE) EKG Rhythm: Sinus Rhythm Physical Exam Respiratory: Lungs clear Cardiovascular: FOUND Regular rate, rhythm Airway Assessment Mallampati Score: II TMD: 3 Fingerbreadths Neck Extension: Good Overall Assessment: No Airway Concerns ASA: 2 Plan Anesthesia Plan: GETA Discussion Discussed risks/options/alternatives of anesthesia and questions answered. Patient consents. Nursing pain assessment noted. Present: Spouse Attestation Statement Prior to the delivery of any anesthetic medication, I examined the patient, developed the plan, obtained the patient's consent and discussed the risk and benefits of the procedure with the patient/guardian. MYRA LOUIE LEAD MANUFACTURING ENGINEERING TECH Jan 08, 2017 14:57
--- NOTE | 2017-01-08 15:50 | NUR ---
LEFT FLOOR AT THIS TIME PT LEFT THE FLOOR AT THIS TIME. PT ALERT AND ORIENTED X3. VITAL SIGNS STABLE WITH ELEVATED BLOOD PRESSURE. A PRN DOSE OF ZOFRAN GIVEN JUST BEFORE THE PT LEFT THE FLOOR FOR INCREASED NAUSEA WITH AMBULATION TO THE BATHROOM. THE PT IS RESTING IN BED. BED WHEELED OUT. UPDATED REPORT OFF TO CARROL CARTER.
[2017-01-08] MEDS ORDERED: BUPIVACAINE 0.25%/EPI 1:200,000 30ml SDV ONE (15:57)
[2017-01-08] MEDS ORDERED: SODIUM CHLORIDE OP PRN (16:15)
[2017-01-08] MEDS ORDERED: LIDOCAINE 2% (20mg/ml) 5ml PF SDV ONE (16:21)
[2017-01-08] MEDS ORDERED: PROPOFOL 200mg 20 ML IV ONE (16:21)
[2017-01-08] MEDS ORDERED: ROCURONIUM 50mg/5ml INJECTION IV ONE (16:21)
[2017-01-08] MEDS ORDERED: FENTANYL 250mcg/5ml INJECTION ONE (16:22)
[2017-01-08] MEDS ORDERED: DEXAMETHASONE 4mg/ml - 1ml INJECTION ONE (16:51)
[2017-01-08] MEDS ORDERED: DESFLURANE 240 ML LIQUID IH ONE (17:00)
--- NOTE | 2017-01-08 18:08 | GSPOSTPN ---
Procedure Procedure Date: Jan 08, 2017 Surgeon: Margarita Assisting Surgeon: Tejas Livingston Anesthesia: Local, GETA ASA: 2 Procedure Diagnostic laparoscopy with appendectomy GS Diagnosis Postop Diagnosis appendicitis, necrotic epiploic appendage Complications Complications Estimated Blood Loss See Anesthesia Record. Vital Signs See Anesthesia and PACU record. JENNY LIVINGSTON APRN, CWS Jan 08, 2017 18:08
[2017-01-08] MEDS ORDERED: ONDANSETRON 4mg/2ml INJECTION IV PRN (18:15)
[2017-01-08] MEDS ORDERED: KETOROLAC 30mg/ml INJECTION IV ONE (18:15)
[2017-01-08] MEDS ORDERED: METOCLOPRAMIDE 10mg/2ml INJECTION IV PRN (18:15)
[2017-01-08] MEDS ORDERED: HYDROMORPHONE 2mg/ml INJECTION IV PRN (18:15)
--- NOTE | 2017-01-08 18:15 | ANESPO ---
Post-Op Note Date 01/08/17 Time: 18:15 Status Pt Participated in Evaluation: Pt participated in person Vital Signs Date Time Temp Pulse Resp B/P Pulse Ox O2 Delivery O2 Flow Rate FiO2 01/08/17 18:10 105 16 142/82 100 Room Air 01/08/17 18:05 4.00 01/08/17 18:00 98.7 Respiratory Function: Airway patent Cardiovascular Function: Regular pulse Telemetry Pattern: SR Mental Status: Alert/oriented Pain Level Intensity: 0 Hydration: IV infusing, Nausea (Treated) Complications during Recovery None apparent Follow-Up Instructions Instructions Per Surgeon MYRA LOUIE BRAKE SHOE REBUILDER Jan 08, 2017 18:15
[2017-01-08] MEDS ORDERED: DiphenhydrAMINE 50 MG/ML INJECTION IV ONE (18:45)
--- NOTE | 2017-01-08 19:00 | NUR ---
RETURNED TO FLOOR PT RETURNED TO FLOOR AT THIS TIME. PT POST OP VITAL STARTED. WILL CONTINUE TO MONITOR. REPORTING OFF TO VENEREAL DISEASE CONTROL HEAD, RN.
--- NOTE | 2017-01-08 19:39 | NUR ---
Provider Call Kiki Bradshaw APRN called in regards to consult ordered for Dr. Corea. Asked about hx of heart problems, CP, and previous cardiac exams. Patient reported no history. Heidy requested repeat EKG, CMP, Trop, and Mag for AM labs. Orders entered.
[2017-01-09] VITALS (8 sets, daily range): BP systolic 123–135; BP diastolic 69–89; PULSE 85–100; RESP 13–20; TEMP 96.7–98.2; O2SAT 95–99
[2017-01-09 05:23] LABS: HCT - HEMATOCRIT 42.4 % (36-46); IMMATURE GRANULOCYTE # (AUTO) 0.01 T/MM3 (0.00-0.03); IMMATURE GRANULOCYTE % (AUTO) 0.1 % (0.0-0.5); LYMPHOCYTES % (AUTO) 12.8 % (23-45); MEAN CORPUSCULAR HGB 29.4 UUG (26-34); MEAN CORPUSCULAR VOLUME 88.9 UM3 (80-100); MEAN PLATELET VOLUME 11.2 UM3 (9.4-12.4); MONOCYTES # (AUTO) 0.3 T/MM3 (0-0.8); MONOCYTES % (AUTO) 3.6 % (0-9.0); NEUTROPHILS #(AUTO)-ABSOLUTE 6.4 T/MM3 (1.8-7.7); NEUTROPHILS % (AUTO) 83.5 % (33-66); RED BLOOD COUNT 4.77 M/MM3 (4.00-5.20); WBC - WHITE BLOOD COUNT 7.7 T/MM3 (4.5-11.0)
--- NOTE | 2017-01-09 05:25 | NUR ---
SHIFT SUMMARY PATIENT IS ALERT AND ORIENTED X3 THIS SHIFT. VITAL SIGNS HAVE BEEN STABLE ON ROOM AIR. PATIENT PLEASANT WITH CARES. PATIENT REPORTS NO PAIN, NAUSEA, OR VOMITING. PATIENT'S LAP SITES ARE DRY AND INTACT. WILL CONTINUE TO MONITOR.
[2017-01-09 05:29] LABS: ALBUMIN 4.4 G/DL (3.5-5.0); ALBUMIN/GLOBULIN RATIO 1.3 RATIO (1.1-2.2); ALKALINE PHOSPHATASE 65 U/L (38-126); ALT (SGPT) 26 U/L (9-52); ANION GAP 14 MEQ/L (5-15); AST (SGOT) 24 U/L (14-36); BUN/CREATININE RATIO 15 RATIO (6-26); CALCIUM 9.4 MG/DL (8.4-10.2); CHLORIDE 101 MEQ/L (98-107); CO2 - CARBON DIOXIDE 27 MEQ/L (22-30); CREATININE 0.8 MG/DL (0.7-1.2); GLOMERULAR FILTRATION RATE 78; GLUCOSE 115 MG/DL (65-110); POTASSIUM 4.7 MEQ/L (3.6-5); SODIUM 142 MEQ/L (134-144); TOTAL PROTEIN 7.7 G/DL (6.3-8.2)
[2017-01-09] MEDS ORDERED: IBUPROFEN 600 MG TABLET PO PRN (07:15)
[2017-01-09] MEDS ORDERED: POLYETHYL.GLYCOL 3350 PACKET 17gm PO ONE (07:15)
--- NOTE | 2017-01-09 08:19 | PNSURG ---
Subjective DATE: 01/09/17 TIME: 08:09 Interval History She is feeling much better this morning. States she is "achy" but the pain is "different" than the pre-op pain. Appetite is still marginal, she is waiting for some breakfast before trying PO pain med. Denies chest pain, SOA, palpitations. Cardiology team has ordered repeat EKG and labs. Await their evaluation of the LBB noted during surgery and in PACU. Objective Vital Signs Date Time Temp Pulse Resp B/P Pulse Ox O2 Delivery O2 Flow Rate FiO2 01/09/17 04:11 96.7 85 13 126/78 97 Room Air 01/08/17 18:05 4.00 Height (Feet): 5 Height (Inches): 9.00 Weight (Kilograms): 74.500 BMI 24.2 General Appearance: Alert, Orientated x 3 Respiratory: FOUND: clear bilaterally Cardiac: FOUND: regular rate, regular rhythm Incision: FOUND: Clean, Dry, Intact, open to air, NOT FOUND: erythema Laboratory Item Value Date Time Troponin I < 0.012 ng/ml 01/09/17447 Magnesium Level 2.0 MG/DL 01/09/178 Laboratory Tests 01/07/17 23:28 01/09/17 04:48 Laboratory Tests 01/07/17 23:28 01/08/17 14:01 01/09/17 04:48 Procedure Procedure Date: Jan 08, 2017 Surgeon: Margarita Procedure Diagnostic laparoscopy with appendectomy GS Assessment & Plan Problems: (1) Bundle branch block Status: Chronic (2) Appendicitis, acute Status: Acute Qualifiers: Acute appendicitis type: unspecified acute appendicitis type Qualified Codes: K35.80 - Unspecified acute appendicitis Assessment She is doing well surgically this am. If able to do well with breakfast and PO pain meds she would be able to discharge today from surgical standpoint. Await cardiology evaluation and recommendations. DVT Prophylaxis: SCD'S Code Status Full Code Hospital Course Summary Disclaimer The visit summary below is not to be considered part of the above Progress Note. Hospital Course Summary 4-5- POD #1 She is doing well surgically this am. If able to do well with breakfast and PO pain meds she would be able to discharge today from surgical standpoint. Await cardiology evaluation and recommendations. JENNY KELSEY APRN, CWS Jan 09, 2017 08:15
[2017-01-09] MEDS: LR 1,000 ML IV SCH ×3 (08:43→17:54)
[2017-01-09] MEDS: HYDROCODONE/APAP 5 mg/325 mg TABLET PO PRN ×2 (09:12→14:09)
--- NOTE | 2017-01-09 09:21 | CONSPD ---
ISAURA NEELY ALDO 01/09/17 0915: Consultation Info Date DATE: 01/09/17 TIME: 09:12 Date of Consultation: Jan 08, 2017 Attending Physician: Nicola Avila MD Reason for Consultation: new LBBB HPI - Adult Date DATE: 01/09/17 TIME: 09:12 General Date of Admission Date of Admission: Jan 08, 2017 at 01:13 Chief Complaint: RLQ pain History of Present Illness Faiza is a 41-year-old female who underwent a diagnostic laparoscopy with appendectomy yesterday who has no known history of cardiac conditions who has a new LBBB. She reports being physically active, working out at the [facility] for over an hour at a time without chest pain, palpitations or dyspnea on exertion. Past Medical History Past Medical History Metabolic: DENIES: diabetes, hypercholesterolemia, hypertension, hyperthyroidism, hypothyroidism Cardiac: DENIES: A-fib, CAD, CHF, AR Respiratory: DENIES: COPD, asthma Surgical History Reproductive/: tubal ligation Joint: knee (x2), shoulder (x2) Current Medications Home Meds Active Scripts Polyethylene Glycol 3350 (Miralax) 17 Gm Powd.pack, 1 PACKET PO DAILY Y for CONSTIPATION, #30 PACKET 3 Refills Prov:JENNY KELSEY APRN Irvin 01/09/17 Ibuprofen (Ibuprofen) 600 Mg Tablet, 600 MG PO Q6H Y for PAIN for 14 Days, #56 TAB Prov:JENNY KELSEY APRN S 01/09/17 Hydrocodone/Acetaminophen ([place] 5-325 Tablet) 5-325 Tablet, 1-2 TAB PO Q5H Y for PAIN, #20 TAB Prov:JENNY KELSEY APRN Irvin 01/09/17 Reported Medications [No Routine Meds] No Conflict Check 01/07/17 Allergies: Coded Allergies: iodine (Verified Allergy, Severe, ANAPHYLACTIC SHOCK, 01/07/17) Family History FOUND: CHF (father), hypertension (mother) Vaccines 2014 No Social History Smoking Status: Never smoker Does patient use chewing tobac: No Second Hand Exposure: No Substance Use Type: does not use Alcohol Intake: occasionally Advance Directives: No DPOA for Healthcare Only Review of Systems Constitutional: DENIES: chills, dizziness, fever, weakness Eyes General: DENIES: pain Vision: DENIES: double vision ENMT Hearing: DENIES: tinnitus Balance: DENIES: vertigo Sinuses: NOT FOUND: rhinorrhea Mouth/Throat: DENIES: sore throat Cardiovascular DENIES: chest pain, dyspnea on exertion, murmur, orthopnea, paroxysmal nocturnal dysp Rhythm/Rate: DENIES: irregular beat, palpitations, tachycardia Vascular: DENIES: pedal edema Pulmonary Respiratory: DENIES: cough, sputum GI Upper Abdomen: DENIES: nausea, pain, vomiting Lower Abdomen: pain (RLQ), DENIES: diarrhea General: DENIES: dysuria Integumentary Skin: DENIES: rash, sores Neurological General: DENIES: headache, numbness, seizures, syncope, weakness All Other Systems All Other Systems: Reviewed (remainder of 10-point ROS Neg.) Physical Exam General General Nourishment: well nourished, well developed, apparent age Vital Signs Vital Signs Date Time Temp Pulse Resp B/P Pulse Ox O2 Delivery O2 Flow Rate FiO2 01/09/17 08:47 97.3 91 16 135/89 99 Room Air 01/08/17 18:05 4.00 Height (Feet): 5 Height (Inches): 9.00 Neck Brief: NOT FOUND: JVD, carotid bruits Respiratory Brief: FOUND: clear all taylor, equal bilaterally, NOT FOUND: rales , wheezes Cardiovascular (brief) Cardiac Brief: FOUND: regular rate, regular rhythm, NOT FOUND: click, gallop, murmur, pedal edema Abdomen (brief) Abdominal Brief: FOUND: BS normo active x4, soft, NOT FOUND: tender Integumentary (brief) Integumentary Brief: FOUND: dry, pink, warm Neurologic RN Documented GCS Eye Opening: Verbal: Motor: Total: Psychiatric (brief) FOUND: alert, oriented Laboratory Laboratory Tests Test 01/07/17 23:28 01/07/17 23:29 01/08/17 14:01 01/09/17 04:48 White Blood Count 7.9T/MM3 7.9T/MM3 7.7T/MM3 Red Blood Count 4.69M/MM3 4.81M/MM3 4.77M/MM3 Hemoglobin 13.9GM/DL 14.2GM/DL 14.0GM/DL Hematocrit 42.3% 42.9% 42.4% Mean Corpuscular Volume 90.2UM3 89.2UM3 88.9UM3 Mean Corpuscular Hemoglobin 29.6UUG 29.5UUG 29.4UUG Mean Corpuscular Hemoglobin Concent 32.9GM/DL 33.1GM/DL 33.0GM/DL RDW Standard Deviation 43.2FL 42.4FL 42.1FL Platelet Count 228T/MM3 221T/MM3 225T/MM3 Mean Platelet Volume 11.2UM3 10.6UM3 11.2UM3 Immature Granulocyte % (Auto) 0.0% 0.1% 0.1% Neutrophils (%) (Auto) 56.7% 68.3% 83.5% Lymphocytes (%) (Auto) 34.3% 26.4% 12.8% Monocytes (%) (Auto) 6.9% 4.5% 3.6% Eosinophils (%) (Auto) 1.5% 0.3% 0.0% Basophils (%) (Auto) 0.6% 0.4% 0.0% Absolute Immature Granulocyte (auto 0.00T/MM3 0.01T/MM3 0.01T/MM3 Absolute Neutrophils (auto) 4.5T/MM3 5.4T/MM3 6.4T/MM3 Absolute Lymphocytes (auto) 2.7T/MM3 2.1T/MM3 1.0T/MM3 Absolute Monocytes (auto) 0.6T/MM3 0.4T/MM3 0.3T/MM3 Absolute Eosinophils (auto) 0.1T/MM3 0.0T/MM3 0.0T/MM3 Absolute Basophils (auto) 0.1T/MM3 0.0T/MM3 0.0T/MM3 Turbidity 28 < 20 Sodium Level 148MEQ/L 142MEQ/L Potassium Level 3.9MEQ/L 4.7MEQ/L Chloride Level 107MEQ/L 101MEQ/L Carbon Dioxide Level 27MEQ/L 27MEQ/L Anion Gap 14MEQ/L 14MEQ/L Blood Urea Nitrogen 16.0MG/DL 12.0MG/DL Creatinine 1.0MG/DL 0.8MG/DL Glomerular Filtration Rate Calc 61 78 BUN/Creatinine Ratio 16RATIO 15RATIO Glucose Level 103MG/DL 115MG/DL Calculated Osmolality 285MOSM/KG 274MOSM/KG Calcium Level 9.3MG/DL 9.4MG/DL Total Bilirubin 0.60MG/DL 1.10MG/DL Icterus Index < 2 < 2 Aspartate Amino Transf (AST/SGOT) 18U/L 24U/L Alanine Aminotransferase (ALT/SGPT) 29U/L 26U/L Alkaline Phosphatase 67U/L 65U/L Total Protein 7.7G/DL 7.7G/DL Albumin 4.5G/DL 4.4G/DL Globulin 3.2G/DL 3.3G/DL Albumin/Globulin Ratio 1.4RATIO 1.3RATIO Chemistry Specimen Hemolysis < 15 48 Human Chorionic Gonadotropin, Qual Negative Magnesium Level 2.0MG/DL Troponin I < 0.012ng/ml Laboratory Tests Test 01/07/17 23:28 01/07/17 23:29 01/08/17 14:01 01/09/17 04:48 White Blood Count 7.9T/MM3 7.9T/MM3 7.7T/MM3 Red Blood Count 4.69M/MM3 4.81M/MM3 4.77M/MM3 Hemoglobin 13.9GM/DL 14.2GM/DL 14.0GM/DL Hematocrit 42.3% 42.9% 42.4% Mean Corpuscular Volume 90.2UM3 89.2UM3 88.9UM3 Mean Corpuscular Hemoglobin 29.6UUG 29.5UUG 29.4UUG Mean Corpuscular Hemoglobin Concent 32.9GM/DL 33.1GM/DL 33.0GM/DL RDW Standard Deviation 43.2FL 42.4FL 42.1FL Platelet Count 228T/MM3 221T/MM3 225T/MM3 Mean Platelet Volume 11.2UM3 10.6UM3 11.2UM3 Immature Granulocyte % (Auto) 0.0% 0.1% 0.1% Neutrophils (%) (Auto) 56.7% 68.3% 83.5% Lymphocytes (%) (Auto) 34.3% 26.4% 12.8% Monocytes (%) (Auto) 6.9% 4.5% 3.6% Eosinophils (%) (Auto) 1.5% 0.3% 0.0% Basophils (%) (Auto) 0.6% 0.4% 0.0% Absolute Immature Granulocyte (auto 0.00T/MM3 0.01T/MM3 0.01T/MM3 Absolute Neutrophils (auto) 4.5T/MM3 5.4T/MM3 6.4T/MM3 Absolute Lymphocytes (auto) 2.7T/MM3 2.1T/MM3 1.0T/MM3 Absolute Monocytes (auto) 0.6T/MM3 0.4T/MM3 0.3T/MM3 Absolute Eosinophils (auto) 0.1T/MM3 0.0T/MM3 0.0T/MM3 Absolute Basophils (auto) 0.1T/MM3 0.0T/MM3 0.0T/MM3 Turbidity 28 < 20 Sodium Level 148MEQ/L 142MEQ/L Potassium Level 3.9MEQ/L 4.7MEQ/L Chloride Level 107MEQ/L 101MEQ/L Carbon Dioxide Level 27MEQ/L 27MEQ/L Anion Gap 14MEQ/L 14MEQ/L Blood Urea Nitrogen 16.0MG/DL 12.0MG/DL Creatinine 1.0MG/DL 0.8MG/DL Glomerular Filtration Rate Calc 61 78 BUN/Creatinine Ratio 16RATIO 15RATIO Glucose Level 103MG/DL 115MG/DL Calculated Osmolality 285MOSM/KG 274MOSM/KG Calcium Level 9.3MG/DL 9.4MG/DL Total Bilirubin 0.60MG/DL 1.10MG/DL Icterus Index < 2 < 2 Aspartate Amino Transf (AST/SGOT) 18U/L 24U/L Alanine Aminotransferase (ALT/SGPT) 29U/L 26U/L Alkaline Phosphatase 67U/L 65U/L Total Protein 7.7G/DL 7.7G/DL Albumin 4.5G/DL 4.4G/DL Globulin 3.2G/DL 3.3G/DL Albumin/Globulin Ratio 1.4RATIO 1.3RATIO Chemistry Specimen Hemolysis < 15 48 Human Chorionic Gonadotropin, Qual Negative Magnesium Level 2.0MG/DL Troponin I < 0.012ng/ml Radiology DATE OF EXAM: 01/08/17 ORDERING DOCTOR: DANIELLA WATTS DO TYPE OF EXAM: CT ABD/PELVIS W/O CONTRAST REASON FOR EXAM: Abdominal pain Indication: ITS.REASON: Abdominal pain PROCEDURE: CT ABD/PELVIS W/O CONTRAST: Encounter: Initial Comparison: None Technique: Axial CT images were performed through the abdomen and pelvis without intravenous contrast. Coronal and sagittal two-dimensional reformats. Automated Exposure Control and Iterative Reconstruction dose reducing techniques were utilized. Findings: The lung bases are clear. The unenhanced contours of the liver, gallbladder, spleen, pancreas and adrenal glands are within normal limits. The kidneys appear normal. No abdominal or pelvic adenopathy. Bladder is normal. No free fluid. Uterus is within normal limits. No evidence of a bowel obstruction. The appendix is normal. Clips in the right abdomen apparently represent displaced tubal ligation clips. Bone windows show no acute findings. Impression: No acute disease process seen. There is a preliminary report by [employer]. . Addendum: After further review of the imaging and clinical correlation there is a small amount of possible inflammatory change at the very tip of the appendix which is interposed between the kidney, second portion of the duodenum and posterior right lobe of the liver. This is a quite subtle finding but could possibly represent a minimal tip appendicitis in the appropriate clinical setting. Impression/Recommendation Problems: (1) Bundle branch block Status: Chronic Assessment & Plan: Left BBB. Clinically does not appear to be significant finding. Will obtain Echo to Measure EF and look at heart valves. Recommendation Left BBB. Clinically does not appear to be significant finding. Will obtain Echo to Measure EF and look at heart valves. Thank you for allowing us to participate in the care of this patient. TARYN LI MD 01/11/17 8149: Past Medical History Current Medications Home Meds Active Scripts Polyethylene Glycol 3350 (Miralax) 17 Gm Powd.pack, 1 PACKET PO DAILY Y for CONSTIPATION, #30 PACKET 3 Refills Prov:JENNY KELSEY APRN, CWS 01/09/17 Ibuprofen (Ibuprofen) 600 Mg Tablet, 600 MG PO Q6H Y for PAIN for 14 Days, #56 TAB Prov:JENNY KELSEY APRN, CWS 01/09/17 Hydrocodone/Acetaminophen ([place] 5-325 Tablet) 5-325 Tablet, 1-2 TAB PO Q5H Y for PAIN, #20 TAB Prov:JENNY KELSEY APRN, CWS 01/09/17 Reported Medications [No Routine Meds] No Conflict Check 01/07/17 Allergies: Coded Allergies: iodine (Verified Allergy, Severe, ANAPHYLACTIC SHOCK, 01/07/17) Impression/Recommendation Recommendation After examining the patient I agree with the above assessment. I am involved in the formulation of the patient's plan of care. ISAURA NEELY APRN Jan 09, 2017 09:15 TARYN LI MD Jan 11, 2017 15:39
--- NOTE | 2017-01-09 11:04 | OPNOTEF ---
DATE OF SERVICE: 01/08/2017 SURGEON: Nicola Avila MD BOTTOM PRESSER: Tejas Livingston APRN PREOPERATIVE DIAGNOSIS Persistent right midabdominal pain of uncertain etiology. POSTOPERATIVE DIAGNOSIS Infarcted pericolonic epiploic fat, possible appendicitis. PROCEDURE Diagnostic laparoscopy, resection of infarcted pericolonic epiploic fat, appendectomy. ANESTHESIA General endotracheal. EBL AND FLUIDS Please see chart. BRIEF HISTORY/INDICATIONS Mrs. Johnston is a 41-year-old female whom I was asked to see earlier this morning through the emergency room as a result of suspected appendicitis. A CT scan was obtained that did not reveal any evidence for marked appendicitis. The telemedicine radiologist felt that there was possible appendicitis involving the tip of the appendix. This was a subtle finding. I did review the CT scan personally and the appendix was in an abnormal location adjacent to the duodenum and gallbladder within the right upper quadrant. There was no evidence for marked stranding or fluid within this area. The appendix was not significantly dilated. Upon examination the patient, however, was found to have fairly significant persistent pain located just above the right anterior iliac spine along the lateral aspect of the midabdominal wall. The patient did undergo a pelvic ultrasound that did not reveal any gynecologic abnormalities to explain her ongoing significant pain. As a result of her persistent abdominal pain, it was my recommendation that we proceed with diagnostic laparoscopy/probable appendectomy. For completeness, please refer to notes included in the patient's chart. FINDINGS Upon laparoscopy the patient's appendix was indeed in an abnormal location, was adjacent to the gallbladder. There was a portion of the epiploic fat that appeared to have twisted upon itself and infarcted. There was some inflammatory changes surrounding this epiploic fat and small amount of "blood clot" surrounding this pericolonic appendage. This apparent infarcted epiploic fat was also lying adjacent to the appendix. The tip of the appendix did appear to be somewhat hyperemic and indurated in nature. It was my clinical intuition that this inflammation of the appendix was secondary to the infarcted pericolonic epiploic fat. Nonetheless given this abnormality of the appendix, an appendectomy was performed in conjunction with resection of this infarcted epiploic fat. Liver edge smooth without nodularities. The gallbladder was without noted abnormalities. Small bowel, colon, peritoneal surfaces otherwise which was visualized were within normal limits. DESCRIPTION OF PROCEDURE After informed consent was obtained, the patient was brought to the operative suite and placed on the table in supine fashion. The abdomen was then prepped in sterile fashion. Formal time-out was then completed. 0.25% Marcaine with epinephrine was injected just beneath the level of the umbilicus. A 2-cm curved incision was then made through the area of analgesia. Dissection was then carried down through deep subcuticular tissues to the underlying fascia. Fascia was then grasped with two Sachin clamps and retracted anteriorly. A 1 cm incision was made between the two Sachin clamps. A hemostat was then introduced and the fascial incision gently spread. A U-stitch was then placed with 0 Vicryl. A 12 mm Ariella port was then placed in the peritoneal cavity and pneumoperitoneum was established to a patient pressure of 15 mmHg of carbon dioxide. Additional 5 mm port was then placed within the suprapubic region. Additional 10/12-mm port was then placed within the right upper quadrant. Each port site was preinjected with 0.25% Marcaine with epinephrine and placed under direct visualization. Abdominal cavity was explored via the laparoscope. The appendix itself was initially not able to be identified. One could see the terminal ileum and the terminal ileum was somewhat abnormal in the fact that it was adherent along the right lateral abdominal wall. The terminal ileum itself, however, did not appear markedly abnormal. In an attempt to identify the appendix, the adhesions between the terminal ileum and the right lower abdominal wall were taken down under direct visualization sharply with scissors. The terminal ileum was then bluntly dissected free medially utilizing a suction tip catheter. One could then see that the cecum appeared to be actually more within the right upper quadrant of the abdomen. The patient initially had been placed in a typical Trendelenburg position and slightly rotated towards her left. The patient was taken out of Trendelenburg position and in fact was placed in a slightly head-up position. Attention was then focused more towards the right upper quadrant. One could see the tip of the appendix just lateral to the gallbladder. Additionally, adjacent to this area, one could see a portion of epiploic fat that appeared to have infarcted and contained a small clot upon the tip of the pericolonic epiploic fat. This portion of epiploic fat was quite indurated and thickened in nature. This epiploic fat that was inflamed was adjacent to the appendix. The appendix itself did appear slightly hyperemic and indurated as well. It was difficult to know with certainty that the appendix was not the main culprit and that these other findings were secondary or, vice versa, that the findings of the appendix were secondary to this inflamed portion of epiploic fat. I therefore elected to proceed both at this point time with an appendectomy and resection of this epiploic fat portion. A few Horizon hemoclips were placed proximally upon this portion of epiploic fat and the epiploic fat was transected distal to the Horizon hemoclips. The area of involvement was resected in this fashion. Next, the appendix itself was somewhat difficult to dissect given its abnormal location. The tip of the appendix was retracted anteriorly and the mesoappendix was then sequentially divided between Horizon hemoclips and retracted anteriorly. The appendix appeared to be in the location of the duodenum but upon further visualization the duodenal C-loop was actually to the left of the gallbladder. Nonetheless, care was taken during dissection of the appendix and the appendix was continued to be retracted anteriorly and caudally as it was being dissected from just beneath the edge of the liver and out lateral to the gallbladder. Eventually the base of the appendix then could be seen and the cecum itself was actually located within the right upper quadrant of the abdomen. A linear stapler with a GI load was then placed through the 12 mm port and placed across the base of the appendix and fired. The appendix and this portion of epiploic fat that had been resected were then both placed in a laparoscopic retrieval bag and removed from the infraumbilical port site. Irrigation was performed and all irrigant was suctioned until clear. Prior areas of dissection were hemostatic in nature. No evidence for significant bleeding was present. Staple line at the base of the appendix was inspected and found to be intact. Next, ports were then removed under direct visualization. Previously placed U stitch at the infraumbilical port was then secured imbricating the fascia. All skin incisions were then closed in a subcuticular fashion with 4-0 Monocryl. The patient was awakened from her anesthetic and subsequently was sent back to the recovery room once deemed in stable condition. Additionally, it should be noted that Tejas Livingston APRN, was present throughout the entire case and played a pivotal role in providing assistance and exposure during the course of the procedure. FRANCESCO
--- NOTE | 2017-01-09 15:12 | NUR ---
CM THIS WORKER MET WITH PT ON THIS DATE. PT REPORTED THAT SHE IS EAGER TO RETURN HOME. DOESN'T EXPECT ANY DISCHARGE NEEDS. SPENT TIME WITH SUPPORTIVE LISTENING WITH PT ON THIS DATE. CONTACT INFORMATION PROVIDED AND ENCOURAGED TO CONTACT THIS WORKER WITH ANY NEEDS.
--- NOTE | 2017-01-09 15:41 | ECHOF ---
DATE OF PROCEDURE January 09, 2017 This is a two-dimensional echo with spectral Doppler, color-flow and M-mode. It was obtained in a patient with abnormal EKG and left bundle branch block. Left atrial dimension is normal. Left ventricular end-diastolic dimension is normal. Left ventricular wall thickness is at the upper limits of normal. LV systolic function is normal with ejection fraction of 66%. Right atrium is normal. Right ventricle is normal. Aortic root dimension is normal. Mitral, aortic, tricuspid, pulmonary valves appear to be normal. There is no pericardial effusion. IMPRESSION Essentially normal echo. MTDD
[2017-01-09] MEDS ORDERED: POLY17PO6 PO (17:20)
[2017-01-09] MEDS ORDERED: IBUP-2067 PO (17:20)
[2017-01-09] MEDS ORDERED: HYDR-4246 PO (17:20)
--- NOTE | 2017-01-09 17:29 | PNSURG ---
Subjective DATE: 01/09/17 TIME: 17:21 Interval History Doing well this evening. Ate regular lunch, no nausea. She had [place] about 2pm, no Dilaudid since yesterday. Echo returned normal, waiting on word if she needs follow up with cardiology or not. We discussed post op activity expectations. Work release made for January 15 with restrictions. Pathology is pending. Objective Vital Signs Date Time Temp Pulse Resp B/P Pulse Ox O2 Delivery O2 Flow Rate FiO2 01/09/17 15:31 97.3 97 16 124/69 98 Room Air 01/08/17 18:05 4.00 Height (Feet): 5 Height (Inches): 9.00 Weight (Kilograms): 75.000 BMI 24.2 General Appearance: Alert, Orientated x 3, No Acute Distress Comments nonlabored Incision: FOUND: Clean, Dry, Intact, open to air, NOT FOUND: erythema Laboratory Laboratory Tests 01/07/17 23:28 01/09/17 04:48 Laboratory Tests 01/07/17 23:28 01/08/17 14:01 01/09/17 04:48 Imaging ECHO Left atrial dimension is normal. Left ventricular end-diastolic dimension is normal. Left ventricular wall thickness is at the upper limits of normal. LV systolic function is normal with ejection fraction of 66%. Right atrium is normal. Right ventricle is normal. Aortic root dimension is normal. Mitral, aortic, tricuspid, pulmonary valves appear to be normal. There is no pericardial effusion. IMPRESSION Essentially normal echo. Procedure Procedure Date: Jan 08, 2017 Surgeon: Margarita Procedure Diagnostic laparoscopy with appendectomy Assessment & Plan Problems: (1) Bundle branch block Status: Chronic (2) Appendicitis, acute Status: Resolved Qualifiers: Acute appendicitis type: unspecified acute appendicitis type Qualified Codes: K35.80 - Unspecified acute appendicitis Assessment She is doing well surgically this am. If able to do well with breakfast and PO pain meds she would be able to discharge today from surgical standpoint. Await cardiology evaluation and recommendations. DVT Prophylaxis: SCD'S Code Status Full Code Hospital Course Summary Disclaimer The visit summary below is not to be considered part of the above Progress Note. Hospital Course Summary 01-08-2017 Mrs. Johnston is a 41-year-old female whom I was asked to see earlier this morning through the emergency room as a result of suspected appendicitis. A CT scan was obtained that did not reveal any evidence for marked appendicitis. The telemedicine radiologist felt that there was possible appendicitis involving the tip of the appendix. This was a subtle finding. I did review the CT scan personally and the appendix was in an abnormal location adjacent to the duodenum and gallbladder within the right upper quadrant. There was no evidence for marked stranding or fluid within this area. The appendix was not significantly dilated. Upon examination the patient, however, was found to have fairly significant persistent pain located just above the right anterior iliac spine along the lateral aspect of the midabdominal wall. The patient did undergo a pelvic ultrasound that did not reveal any gynecologic abnormalities to explain her ongoing significant pain. As a result of her persistent abdominal pain, it was my recommendation that we proceed with diagnostic laparoscopy/probable appendectomy. 4-5- POD #1 She is doing well surgically this am. If able to do well with breakfast and PO pain meds she would be able to discharge today from surgical standpoint. Await cardiology evaluation and recommendations. On evening rounds, she is on regular diet, no nausea. Will discharge to home. Work release with restrictions made for January 15. Routine surgical follow up January 22. Sooner if concerns arise. ECHO Left atrial dimension is normal. Left ventricular end-diastolic dimension is normal. Left ventricular wall thickness is at the upper limits of normal. LV systolic function is normal with ejection fraction of 66%. Right atrium is normal. Right ventricle is normal. Aortic root dimension is normal. Mitral, aortic, tricuspid, pulmonary valves appear to be normal. There is no pericardial effusion. IMPRESSION Essentially normal echo. Follow up with cardiology as directed. JENNY KELSEY APRN, CWS Jan 09, 2017 17:25
--- NOTE | 2017-01-09 17:35 | GSDISC ---
General Date Date DATE: 01/09/17 TIME: 17:30 Attending Physician Nicola Duval MD,Facs,Cws Admitting Physician Nicola Duval MD,Facs,Cws Consulting Physician Shyam Corea MD Discharge Diagnosis: (1) Appendicitis, acute Status: Resolved (2) Bundle branch block Status: Chronic Procedures Diagnostic laparoscopy with appendectomy Laboratory Laboratory Item Value Date Time White Blood Count 7.9 T/MM3 01/07/17 2328 White Blood Count 7.9 T/MM3 01/08/17 1401 White Blood Count 7.7 T/MM3 01/09/17 0448 Hemoglobin 13.9 GM/DL 01/07/17 2328 Hemoglobin 14.2 GM/DL 01/08/17 1401 Hemoglobin 14.0 GM/DL 01/09/17 0448 Troponin I < 0.012 ng/ml 01/09/17 0448 Human Chorionic Gonadotropin, Qual Negative 01/07/17 2329 Creatinine 0.8 MG/DL # 01/09/17 0448 Blood Urea Nitrogen 12.0 MG/DL 01/09/17 0448 Potassium Level 4.7 MEQ/L # 01/09/17 0448 Sodium Level 142 MEQ/L # 01/09/17 0448 Sodium Level 148 MEQ/L H 01/07/17 2328 Potassium Level 3.9 MEQ/L 01/07/17 2328 Blood Urea Nitrogen 16.0 MG/DL 01/07/17 2328 Creatinine 1.0 MG/DL 01/07/17 2328 Magnesium Level 2.0 MG/DL 01/09/17 0448 Total Bilirubin 0.60 MG/DL 01/07/17 2328 Total Bilirubin 1.10 MG/DL 01/09/17 0448 Aspartate Amino Transf (AST/SGOT) 18 U/L 01/07/17 2328 Aspartate Amino Transf (AST/SGOT) 24 U/L 01/09/17 0448 Alanine Aminotransferase (ALT/SGPT) 29 U/L 01/07/17 2328 Alanine Aminotransferase (ALT/SGPT) 26 U/L 01/09/17 0448 Laboratory Tests Test 01/09/17 04:48 White Blood Count 7.7T/MM3 Red Blood Count 4.77M/MM3 Hemoglobin 14.0GM/DL Hematocrit 42.4% Mean Corpuscular Volume 88.9UM3 Mean Corpuscular Hemoglobin 29.4UUG Mean Corpuscular Hemoglobin Concent 33.0GM/DL RDW Standard Deviation 42.1FL Platelet Count 225T/MM3 Mean Platelet Volume 11.2UM3 Immature Granulocyte % (Auto) 0.1% Neutrophils (%) (Auto) 83.5% Lymphocytes (%) (Auto) 12.8% Monocytes (%) (Auto) 3.6% Eosinophils (%) (Auto) 0.0% Basophils (%) (Auto) 0.0% Absolute Immature Granulocyte (auto 0.01T/MM3 Absolute Neutrophils (auto) 6.4T/MM3 Absolute Lymphocytes (auto) 1.0T/MM3 Absolute Monocytes (auto) 0.3T/MM3 Absolute Eosinophils (auto) 0.0T/MM3 Absolute Basophils (auto) 0.0T/MM3 Turbidity < 20 Sodium Level 142MEQ/L Potassium Level 4.7MEQ/L Chloride Level 101MEQ/L Carbon Dioxide Level 27MEQ/L Anion Gap 14MEQ/L Blood Urea Nitrogen 12.0MG/DL Creatinine 0.8MG/DL Glomerular Filtration Rate Calc 78 BUN/Creatinine Ratio 15RATIO Glucose Level 115MG/DL Calculated Osmolality 274MOSM/KG Calcium Level 9.4MG/DL Magnesium Level 2.0MG/DL Total Bilirubin 1.10MG/DL Icterus Index < 2 Aspartate Amino Transf (AST/SGOT) 24U/L Alanine Aminotransferase (ALT/SGPT) 26U/L Alkaline Phosphatase 65U/L Troponin I < 0.012ng/ml Total Protein 7.7G/DL Albumin 4.4G/DL Globulin 3.3G/DL Albumin/Globulin Ratio 1.3RATIO Chemistry Specimen Hemolysis 48 Pathology Pathology Pending at time of discharge. Radiology 01-08-17 CT Findings: The lung bases are clear. The unenhanced contours of the liver, gallbladder, spleen, pancreas and adrenal glands are within normal limits. The kidneys appear normal. No abdominal or pelvic adenopathy. Bladder is normal. No free fluid. Uterus is within normal limits. No evidence of a bowel obstruction. The appendix is normal. Clips in the right abdomen apparently represent displaced tubal ligation clips. Bone windows show no acute findings. Impression: No acute disease process seen. There is a preliminary report by [employer]. . Addendum: After further review of the imaging and clinical correlation there is a small amount of possible inflammatory change at the very tip of the appendix which is interposed between the kidney, second portion of the duodenum and posterior right lobe of the liver. This is a quite subtle finding but could possibly represent a minimal tip appendicitis in the appropriate clinical setting. 01-08-17 Trans-Vag Ultrasound FINDINGS: Transvaginal and transabdominal pelvic imaging was performed. The uterus measures 6.7 x 3.3 x 3.9 cm. The parenchyma is homogeneous without fibroids. The endometrial stripe measures 3 mm in thickness. There is no evidence of focal endometrial mass. Both ovaries are identified and normal in appearance. The right ovary measures 2.2 x 2.2 x 1.5 cm. The left ovary measures 2.4 x 1.7 x 1.7 cm. There are no abnormal adnexal masses detected. Normal Doppler flow seen to both ovaries. No free fluid. No sonographic abnormality in the right lower quadrant area of pain. IMPRESSION: Normal pelvic sonogram. 01-09-2017 ECHO Left atrial dimension is normal. Left ventricular end-diastolic dimension is normal. Left ventricular wall thickness is at the upper limits of normal. LV systolic function is normal with ejection fraction of 66%. Right atrium is normal. Right ventricle is normal. Aortic root dimension is normal. Mitral, aortic, tricuspid, pulmonary valves appear to be normal. There is no pericardial effusion. IMPRESSION Essentially normal echo. Hospital Course 01-08-2017 Mrs. Johnston is a 41-year-old female whom I was asked to see earlier this morning through the emergency room as a result of suspected appendicitis. A CT scan was obtained that did not reveal any evidence for marked appendicitis. The telemedicine radiologist felt that there was possible appendicitis involving the tip of the appendix. This was a subtle finding. I did review the CT scan personally and the appendix was in an abnormal location adjacent to the duodenum and gallbladder within the right upper quadrant. There was no evidence for marked stranding or fluid within this area. The appendix was not significantly dilated. Upon examination the patient, however, was found to have fairly significant persistent pain located just above the right anterior iliac spine along the lateral aspect of the midabdominal wall. The patient did undergo a pelvic ultrasound that did not reveal any gynecologic abnormalities to explain her ongoing significant pain. As a result of her persistent abdominal pain, it was my recommendation that we proceed with diagnostic laparoscopy/probable appendectomy. 4-5- POD #1 She is doing well surgically this am. If able to do well with breakfast and PO pain meds she would be able to discharge today from surgical standpoint. Await cardiology evaluation and recommendations. On evening rounds, she is on regular diet, no nausea. Will discharge to home. Work release with restrictions made for January 15. Routine surgical follow up January 22. Sooner if concerns arise. ECHO Left atrial dimension is normal. Left ventricular end-diastolic dimension is normal. Left ventricular wall thickness is at the upper limits of normal. LV systolic function is normal with ejection fraction of 66%. Right atrium is normal. Right ventricle is normal. Aortic root dimension is normal. Mitral, aortic, tricuspid, pulmonary valves appear to be normal. There is no pericardial effusion. IMPRESSION Essentially normal echo. Follow up with cardiology as directed. Home Meds Active Scripts Hydrocodone/Acetaminophen ([place] 5-325 Tablet) 5-325 Tablet, 1-2 TAB PO Q5H Y for PAIN, #20 TAB Prov:JENNY KELSEY APRN, CWS 01/09/17 Reported Medications [No Routine Meds] No Conflict Check 01/07/17 Discharge Disposition Good condition JENNY KELSEY APRN, CWS Jan 09, 2017 17:33
--- NOTE | 2017-01-09 18:20 | NUR ---
DISCHARGE NURSING NOTE PT WAS DISCHARGED FROM THE HOSPITAL AT THIS TIME, AMBULATORY FROM THE MAIN ENTRANCE. PT ALERT AND ORIENTED X3. VITAL SIGNS STABLE, ON RA. THIS RN WENT OVER DISCHARGE PAPERWORK WITH THE PT INCLUDING DISCHARGE DIET, ACTIVITY, MEDICATIONS, SCRIPTS, FOLLOW-UP APPOINTMENT AND INCISION CARE. PT VERBALIZED UNDERSTANDING. PT'S IV SITE WAS DCD AND ID BAND WAS REMOVED. THE PT WAS ACCOMPANIED BY FAMILY AT TIME OF DISCHARGE, NO CONCERNS NOTED. ALL BELONGINGS SENT WITH PT. THIS RN CONTACT REJI WITH DR. [facility] AND RECEIVED INSTRUCTION TO HAVE THE PT FOLLOW-UP IN 2-4 WEEKS.
== END 2017-01-09 18:30 | disposition home or self-care (01) | DRG 343 ==
LOC: ED 22:46 → EDHOLD 01-08 01:13 → SRG 01-08 01:50 → MED 01-08 01:50 → SRG 01-08 07:44
PROVIDERS: ADMIT Surgery; ATTEND Surgery
PROC: 0DTJ4ZZ Resection of Appendix, Percutaneous Endoscopic Approach (ICD-10-PCS; principal; 2017-01-08 16:55)
PROC: B24BZZZ Ultrasonography of Heart with Aorta (ICD-10-PCS; 2017-01-09)
DX: K35.80 Unspecified acute appendicitis (principal); I44.7 Left bundle-branch block, unspecified; Z79.899 Other long term (current) drug therapy
CPT/HCPCS: 36000; 36415; 80053; 83735; 84484; 84703; 85025; 93005; 93306; 96361; 96374; 96375